=== PATIENT | female | born 1940 | race Hispanic/Latino ===

== ENCOUNTER 2016-09-28 10:40 | Outpatient (CLI) | payer MEDICARE ==
[2016-09-28] MEDS ORDERED: DEPO-MEDROL INTRA-ARTI ONE (11:30)
[2016-09-28] MEDS ORDERED: XYLOCAINE 1% 20 mL INFILTRATI NR (11:30)
[2016-09-28] MEDS ORDERED: XYLOCAINE 1% 20 mL ONE (12:55)
--- NOTE | 2016-09-28 15:39 | Fluoroscopy Report ---
THERAPEUTIC INJECTION OF THE LEFT HIP WITH FLUOROSCOPIC GUIDANCE: PROCEDURE: The patient's skin surface overlying the left hip was prepped and draped using sterile technique. Local anesthetic was injected into the skin. Using fluoroscopic guidance, a 22-gauge spinal needle was advanced into the capsule of the left hip joint. Injection of 1-2 cc of Omnipaque confirmed the intracapsular location of the needle tip. Subsequently, a mixture of 6 cc of 1% lidocaine and 40 mg of Depo-Medrol were injected successfully. The patient tolerated the procedure well clinically.
== END 2016-09-28 10:41 | disposition home or self-care (01) ==
LOC: FLUORO 10:40
PROVIDERS: ATTEND Orthopaedic Surgery
DX: M25.552 Pain in left hip (principal)
CPT/HCPCS: 27093; 73525; J1030; Q9965

== ENCOUNTER 2017-05-21 14:10 | Emergency (ER) | payer OTHER, MEDICARE ==
[2017-05-21 14:23] VITALS: BP 159/99
--- NOTE | 2017-05-21 16:32 | XRay Report ---
Right wrist: Trauma, pain. The bones are demineralized. There is no fracture and no displacement. The joint spaces are preserved. No significant swelling. Impression: Unremarkable for age.
[2017-05-21] MEDS ORDERED: MOTRIN PO ONE (17:40)
--- NOTE | 2017-05-21 17:43 | Cat Scan Report ---
FINAL REPORT PROCEDURE: CT head without contrast. TECHNIQUE: Computerized tomography of the head was performed without contrast material. HISTORY: Headache. COMPARISON: CT head 05/10/2015. FINDINGS: There is mild cerebral atrophy. There is diminished attenuation without mass effect involving the medial portions of both cerebellar hemispheres. This is more extensive on the left side. This is consistent with encephalomalacia and is probably secondary to a previous cerebellar stroke. There is mild evidence of chronic ischemic white matter disease. There are no mass lesions. There is no intracranial hemorrhage. The calvarium appears intact. The mastoid air cells and paranasal sinuses are clear as far as visualized. IMPRESSION: Previous cerebellar stroke. No evidence of acute disease.
--- NOTE | 2017-05-21 18:22 | XRay Report ---
FINAL REPORT PROCEDURE: Lumbar spine. TECHNIQUE: Three views. HISTORY: Patient fell, lower back pain. COMPARISON: No prior studies are available for comparison. FINDINGS: The lumbar vertebrae have normal height and alignment. There are no fractures. There is no spondylolisthesis. There is moderate disc space narrowing at L4-5 and L5-S1. The sacrum and sacroiliac joints appear normal. There is atherosclerotic calcification in the abdominal aorta and both common iliac arteries. IMPRESSION: Disc space narrowing at L4-5 and L5-S1.
--- NOTE | 2017-05-21 18:23 | XRay Report ---
FINAL REPORT PROCEDURE: Right forearm. TECHNIQUE: AP and lateral views. HISTORY: RIGHT ARM PAIN; fall COMPARISON: No prior studies are available for comparison. FINDINGS: The bones appear intact without fracture or dislocation. The joint spaces appear normal. The soft tissues are unremarkable. IMPRESSION: Normal study.
--- NOTE | 2017-05-21 18:25 | XRay Report ---
FINAL REPORT PROCEDURE: Right hand. TECHNIQUE: Three views. HISTORY: RIGHT HAND PAIN; fall COMPARISON: No prior studies are available for comparison. FINDINGS: The bones appear intact without fracture or dislocation. The joint spaces appear normal. The soft tissues are unremarkable. IMPRESSION: No significant abnormality.
--- NOTE | 2017-05-21 18:48 | Emergency Department Report ---
Entered by ARPIT MATOS, acting as scribe for MICHELLE ELLIS NP. ED Fall HPI - General Chief Complaint: Extremity Injury, Upper Stated Complaint: FELL/RT WRIST PAIN Time Seen by Provider: 05/21/17 14:38 Source: patient Mode of arrival: Ambulatory Limitations: No Limitations - History of Present Illness Initial Comments: This is a 76 y/o female, nontoxic, well nourished in appearance, no acute signs of distress with a PMHx of CVA and HTN presents with a fall injury that occurred this morning. Patient states she slipped, fell backwards landing on right hand, and subsequently hit her head at [place]. In the ED, patient c/o right wrist/hand pain, low back pain, and a mild achy back of head headache , but she denies LOC, syncope, blurry vision, dizziness, abdominal pain, nausea , vomiting, fever, chills, chest pain, SOB, [place] or dizziness, numbness, and tingling. Denies that this is the worst headache of her life. Rates right wrist/ forearm pain an 8/10 in severity, which she describes as aching in quality. Aggravated with movement and alleviated with immobilization. Notes she's been on blood thinners for 19 years. Allergic to codeine and sulfa. MD Complaint: fall -: This morning Fall From: standing When Fall Occurred: 1 hour [facility]AS Fall Witnessed: yes, by bystander Place Fall Occurred: other ([place]) Loss of Consciousness: none Prolonged Down Time?: no Symptoms Prior to Fall: none Location: head (back of head), back (low back) Location - Extremities: Right: Forearm (wrist) Severity: severe Severity scale (0 -10): 8 Quality: aching Context: tripped/slipped Associated Symptoms: headache, other (RT forearm and wrist pain). denies: neck pain, numbness, weakness, chest paint, shortness of breath, abdominal pain, hematuria, unable to walk, lightheaded, vertigo, confusion - Related Data Home Medications Medication Instructions Recorded Confirmed Last Taken ALPRAZolam [Xanax TAB] 0.5 mg PO DAILY 05/10/15 05/10/15 05/10/15 0.5 mg Clopidogrel [Plavix] 75 mg PO QDAY 05/10/15 05/10/15 05/10/15 75mg Lisinopril [Zestril TAB] 20 mg PO QDAY 05/10/15 05/10/15 04/30/15 20 mg Aspirin [Aspirin BABY CHEW TAB] 81 mg PO DAILY 05/11/15 05/11/15 1 Day Ago Previous Rx's Medication Instructions Recorded Last Taken Type Ibuprofen [Motrin 600 MG tab] 600 mg PO Q8H PRN #30 tablet 05/21/17 Unknown Rx Allergies Allergy/AdvReac Type Severity Reaction Status Date / Time codeine Allergy Unknown Verified 09/28/16 11:30 Sulfa (Sulfonamide Allergy Unknown Verified 05/21/17 14:18 Antibiotics) ED Review of Systems Comment: All other systems reviewed and negative Constitutional: denies: chills, fever Eyes: denies: eye pain, eye discharge, vision change ENT: denies: ear pain, throat pain Respiratory: denies: cough, orthopnea, shortness of breath, SOB with exertion, SOB at rest, stridor, wheezing Cardiovascular: denies: chest pain, palpitations, dyspnea on exertion, orthopnea , edema, syncope, paroxysmal nocturnal dyspnea Endocrine: no symptoms reported Gastrointestinal: denies: abdominal pain, nausea, vomiting, diarrhea Genitourinary: denies: urgency, dysuria, discharge Musculoskeletal: back pain (low back), arthralgia (RT wrist/forearm). denies: joint swelling, myalgia Skin: denies: rash, lesions Neurological: headache (back of head). denies: weakness, numbness, paresthesias , confusion, abnormal gait, vertigo Psychiatric: denies: anxiety, depression Hematological/Lymphatic: denies: easy bleeding, easy bruising ED Past Medical Hx - Past Medical History Previous Medical History?: Yes Hx Hypertension: Yes Hx CVA: Yes (CVA X 2-1998) - Surgical History Past Surgical History?: Yes Hx Cholecystectomy: Yes Hx Appendectomy: Yes Additional Surgical History: TONSILLECTOMY. HYSTERECTOMY - Family History Family history: no significant - Social History Smoking Status: Former Smoker Substance Use Type: None - Medications Home Medications: Home Medications Medication Instructions Recorded Confirmed Last Taken Type ALPRAZolam [Xanax TAB] 0.5 mg PO DAILY 05/10/15 05/10/15 05/10/15 History 0.5 mg Clopidogrel [Plavix] 75 mg PO QDAY 05/10/15 05/10/15 05/10/15 History 75mg Lisinopril [Zestril TAB] 20 mg PO QDAY 05/10/15 05/10/15 04/30/15 History 20 mg Aspirin [Aspirin BABY CHEW TAB] 81 mg PO DAILY 05/11/15 05/11/15 1 Day Ago History Ibuprofen [Motrin 600 MG tab] 600 mg PO Q8H PRN #30 tablet 05/21/17 Unknown Rx ED Physical Exam - General Limitations: No Limitations General appearance: alert, in no apparent distress - Head Head exam: Present: atraumatic, normocephalic - Eye Eye exam: Present: normal appearance, PERRL, EOMI. Absent: scleral icterus, conjunctival injection, nystagmus, periorbital swelling, periorbital tenderness Pupils: Present: normal accommodation - ENT ENT exam: Present: normal exam, normal orophraynx, mucous membranes moist, TM's normal bilaterally, normal external ear exam - Neck Neck exam: Present: normal inspection, full ROM. Absent: tenderness, meningismus, lymphadenopathy, thyromegaly - Respiratory Respiratory exam: Present: normal lung sounds bilaterally. Absent: respiratory distress, wheezes, rales, rhonchi, stridor, chest wall tenderness, accessory muscle use, decreased breath sounds, prolonged expiratory - Cardiovascular Cardiovascular Exam: Present: regular rate, normal rhythm, normal heart sounds. Absent: bradycardia, tachycardia, irregular rhythm, systolic murmur, diastolic murmur, rubs, gallop - GI/Abdominal GI/Abdominal exam: Present: soft, normal bowel sounds. Absent: distended, tenderness, guarding, rebound, rigid, diminished bowel sounds - Rectal Rectal exam: Present: deferred - Extremities Exam Extremities exam: Present: full ROM (limited extension secondary to RT wrist/ forearm pain), tenderness (RT forearm/wrist tenderness), normal capillary refill. Absent: normal inspection, pedal edema, joint swelling, calf tenderness - Expanded Upper Extremity Exam Right General: Present: normal inspection. Absent: laceration, abrasion, nail injury (#), foreign body, amputation, avulsion Shoulder Exam: Present: normal inspection, full ROM. Absent: tenderness, swelling, abrasion, laceration, ecchymosis, deformity, crepidus, dislocation, erythema, tenderness over AC joint Upper Arm exam: Present: normal inspection, full ROM. Absent: tenderness, swelling, abrasion, laceration, ecchymosis, deformity, crepidus, dislocation, erythema Elbow exam: Present: normal inspection, full ROM. Absent: tenderness, swelling , abrasion, laceration, ecchymosis, deformity, crepidus, dislocation, erythema, effusion, pain w/ pronation/supination, tenderness over radial head Forearm Wrist exam: Present: full ROM (limited extension secondary to RT wrist/ forearm pain), tenderness, ecchymosis. Absent: normal inspection, swelling, abrasion, laceration, deformity, crepidus, dislocation, erythema, tenderness over anatomical snuff box, pain with axial thumb loading Hand Wrist exam: Present: full ROM, tenderness, ecchymosis. Absent: normal inspection, swelling, abrasion, laceration, deformity, crepidus, dislocation, erythema, amputation, nail avulsion, subungual hematoma Neuro motor exam: Present: wrist extension intact, thumb opposition intact, thumb IP flexion intact, thumb adduction intact, fingers 2-5 abduction intact Neurosensory exam: Present: 2-point discrimination, radial nerve intact, ulnar nerve intact, median nerve intact Vascular: Present: normal capillary refill, radial pulse (2+), brachial pulse, ulnar pulse. Absent: vascular compromise, Pallo, pulse deficit radial art - Back Exam Back exam: Present: full ROM, tenderness (lumbar vertebral tenderness), vertebral tenderness (lumbar). Absent: normal inspection, CVA tenderness (R), CVA tenderness (L), muscle spasm, paraspinal tenderness, rash noted - Neurological Exam Neurological exam: Present: alert, oriented X3, CN II-XII intact, normal gait, reflexes normal. Absent: motor sensory deficit - Expanded Neurological Exam Expanded Patient oriented to: Present: person, place, time Speech: Present: fluid speech Cranial nerves: EOM's Intact: Normal, Gag Reflex: Normal, Tongue Deviation: Normal, Nystagmus: Normal, Facial Sensation: Normal, Facial Palsy with Forehead Movement: Normal, Facial Palsy without Forehead Movement: Normal Cerebellar function: Finger to Nose: Normal, Heel to Hebert: Normal, Romberg: Normal Upper motor neuron: Sj Neglect: Normal, Pronator Drift: Normal, Babinski Sign : Normal, Sensory Extinction: Normal Sensory exam: Upper Extremity Light Touch: Normal Motor strength exam: RUE: 5, LUE: 5, RLE: 5, LLE: 5 DTR: bicep (R): 2+, bicep (L): 2+, tricep (R): 2+, tricep (L): 2+, knee (R): 2+ , knee (L): 2+, ankle (R): 2+, ankle (L): 2+ Best Eye Response (Leigh): (4) open spontaneously Best Motor Response ([place]): (6) obeys commands Best Verbal Response ([place]): (5) oriented Leigh Total: 15 - Psychiatric Psychiatric exam: Present: normal affect, normal mood - Skin Skin exam: Present: warm, dry, intact. Absent: rash ED Course Vital Signs 05/21/17 14:18 Temperature 98.2 F Pulse Rate 83 Respiratory 16 Rate Blood Pressure 159/99 O2 Sat by Pulse 97 Oximetry - Reevaluation(s) Reevaluation #1: 05/21/17 17:48 Patient is speaking in full sentences with no signs of distress noted. Reevaluation #2: 05/21/17 18:32 The patient received a rekha wrap to the wrist/hand in a shoulder immobilizer to her right shoulder. ED Medical Decision Making - Radiology Data Radiology results: report reviewed interpreted by me: Dr. Laguerre and Dr. Govea CT head/brain without contrast and x-rays are all negative for findings and abnormalities. There is a disc space narrowing and L4 to L5 and L5 to S1. Patient was notified of all the CT scan and x-ray results with no further questions or by patient. ED Disposition Clinical Impression: Contusion Qualifiers: Encounter type: initial encounter Contusion area: forearm Laterality: right Qualified Code(s): S50.11XA - Contusion of right forearm, initial encounter Headache Qualifiers: Headache type: unspecified Headache chronicity pattern: unspecified pattern Intractability: not intractable Qualified Code(s): R51 - Headache Fall Qualifiers: Encounter type: initial encounter Qualified Code(s): W19.XXXA - Unspecified fall, initial encounter Disposition: DC- TO HOME OR SELFCARE Is pt being admited?: No Does the pt Need Aspirin: No Condition: Stable Instructions: Acute Headache (ED), Ibuprofen (By mouth), Contusion in Adults ( ED) Additional Instructions: Follow-up with the orthopedic doctor/primary care doctor 3-5 days or if symptoms worsen or continue to emergency room as soon as possible. Prescriptions: Ibuprofen [Motrin 600 MG tab] 600 mg PO Q8H PRN #30 tablet PRN Reason: Pain Referrals: PRIMARY CARE, [Primary Care Provider] - 3-5 Days JOSUE ALVAREZ MD [Staff Physician] - 3-5 Days YESENIA GUILLERMO MD [Staff Physician] - 3-5 Days [facility] [Outside] - 3-5 Days [facility] [Outside] - 3-5 Days Forms: Work/School Release Form(ED) This documentation as recorded by the SHAWNA cummins JASMINE,accurately reflects the service I personally performed and the decisions made by ,MICHELLE ELLIS, SERVICE PLUMBER.
== END 2017-05-21 18:52 | disposition home or self-care (01) ==
LOC: ED 14:10
DX: S50.11XA Contusion of right forearm, initial encounter (principal); R51 Headache; I10 Essential (primary) hypertension; Z86.73 Personal history of transient ischemic attack (TIA), and cerebral infarction without residual deficits; Z87.891 Personal history of nicotine dependence; Z79.82 Long term (current) use of aspirin; W19.XXXA Unspecified fall, initial encounter; Y93.89 Activity, other specified; Y99.9 Unspecified external cause status; Y92.89 Other specified places as the place of occurrence of the external cause
CPT/HCPCS: 70450; 72100

== ENCOUNTER 2017-11-20 02:53 | Inpatient (IN) | payer MEDICARE ==
--- NOTE | 2017-11-20 03:12 | Emergency Department Report ---
HPI - General Time Seen by Provider: 11/20/17 02:56 - HPI HPI: Charge nurse triage/room 2 The patient is a 77-year-old female presenting with a chief complaint of right- sided weakness. The patient states she was in her usual state of health and went to bed at 22:00. The patient states between 22:00-00:00 she fell asleep. The patient states when she awakened at 02:00 she had weakness in her right arm and right leg. EMS was called and transported the patient to the ED. The patient states her weakness is improving and is not as profound as it was when she first awakened Location: Right side Duration: [See above] Quality: Weakness Severity: Moderate Modifying factors: [see above] Context: [see above] Mode of transportation: [not driving] ED Past Medical Hx - Past Medical History Hx Hypertension: Yes Hx CVA: Yes (CVA X -1998) - Surgical History Hx Cholecystectomy: Yes Hx Appendectomy: Yes Additional Surgical History: TONSILLECTOMY. HYSTERECTOMY - Family History Family history: no significant - Social History Smoking Status: Former Smoker Substance Use Type: None - Medications Home Medications: Home Medications Medication Instructions Recorded Confirmed Last Taken Type ALPRAZolam [Xanax TAB] 0.5 mg PO DAILY 05/10/15 05/10/15 05/10/15 History 0.5 mg Clopidogrel [Plavix] 75 mg PO QDAY 05/10/15 05/10/15 05/10/15 History 75mg Lisinopril [Zestril TAB] 20 mg PO QDAY 05/10/15 05/10/15 04/30/15 History 20 mg Aspirin [Aspirin BABY CHEW TAB] 81 mg PO DAILY 05/11/15 05/11/15 1 Day Ago History ~05/10/15 Ibuprofen [Motrin 600 MG tab] 600 mg PO Q8H PRN #30 tablet 05/21/17 Unknown Rx ED Review of Systems ROS: Stated complaint: GENERAL WEAKNESS Other details as noted in HPI Neurological: weakness Physical Exam - Physical Exam Physical Exam: GENERAL: The patient is well-developed well-nourished female lying on stretcher not appearing to be in acute distress. [] HEENT: Normocephalic. Atraumatic. Extraocular motions are intact. Patient has moist mucous membranes. NECK: Supple. Trachea midline CHEST/LUNGS: Clear to auscultation. There is no respiratory distress noted. HEART/CARDIOVASCULAR: Regular. There is no tachycardia. There is no gallop rub or murmur. ABDOMEN: Abdomen is soft, nontender. Patient has normal bowel sounds. There is no abdominal distention. SKIN: There is no rash. There is no edema. There is no diaphoresis. NEURO: The patient is awake, alert, and oriented. The patient is cooperative. Cranial nerves II through XII grossly intact. There is right pronator drift. The patient's right leg falls to the bed before 5 seconds. The patient has normal speech MUSCULOSKELETAL: There is no evidence of acute injury. NIHSS= 5 LOC a. Alert= 0 Not alert but arousable to minor stimuli=1 Not alert requires repeated or strong stimuli to move= 2 Responds only reflex motor or unresponsive=3 b. asks month and age answers both correctly= 0 answers one correctly= 1 answers neither correctly= 2 Best Gaze normal= 0 abnormal in one or both but forced deviation or total paresis absent= 1 forced deviation or total gaze paresis= 2 Visual no visual loss= 0 partial hemianopia= 1 complete hemianopia= 2 bilateral hemianopia= 3 Facial Palsy normal= 0 minor paralysis= 1 partial paralysis= 2 complete paralysis= 3 Motor Arm no drift= 0 (+)drift before 10 secs but doesnt hit bed= 1 some effort against gravity= 2 no effort against gravity= 3 no movement= 4 Motor leg no drift= 0 (+)drift before 5 secs but doesnt hit bed= 1 drifts to bed before 5 secs= 2 no effort against gravity= 3 no movement= 4 Limb ataxia absent=0 present in one limb= 1 (+)present in two limbs= 2 Sensory normal= 0 (+)mild sensory loss= 1 severe (unaware of being touched)= 2 Best language mild/some loss of fluency= 1 severe= 2 mute= 3 Dysarthria normal= 0 slurs some words= 1 severe/unintelligible= 2 Extinction and Inattention no abnormality= 0 visual, tactile, auditory or personal inattention= 1 profound (doesnt recognize own hand or orients to only one side= 2 ED Course - Consultations Consultation #1: 11/20/17 03:19 Tele-neurology paged 11/20/17 03:[address] Shafer- states outside window for TPA. Recommends obtaining a CTA brain and neck to evaluate for large vessel occlusions ED Medical Decision Making - Lab Data Result diagrams: 11/20/17 02:55 11/20/17 02:55 Laboratory Tests 11/20/17 11/20/17 11/20/17 02:55 02:55 02:55 WBC 7.1 RBC 4.75 Hgb 14.3 Hct 42.1 MCV 89 MCH 30 MCHC 34 RDW 15.1 Plt Count 233 Lymph % (Auto) 31.6 Benson % (Auto) 8.3 H Eos % (Auto) 1.3 Baso % (Auto) 1.0 Lymph # 2.2 Benson # 0.6 Eos # 0.1 Baso # 0.1 Seg Neutrophils % 57.8 Seg Neutrophils # 4.1 PT 12.5 INR 0.89 APTT 28.7 Sodium 139 Potassium 4.2 Chloride 102.2 Carbon Dioxide 23 Anion Gap 18 BUN 15 Creatinine 0.9 Estimated GFR > 60 BUN/Creatinine Ratio 17 Glucose 106 H Calcium 9.0 - EKG Data -: EKG Interpreted by Sd EKG shows normal: sinus rhythm Rate: normal - EKG Data When compared to previous EKG there are: no significant change Interpretation: unchanged when compared t (03/11/2013) - Radiology Data Radiology results: report reviewed (CT head, CTA brain, CTA neck), image reviewed (CT head, CTA brain, CTA neck) CT head (read by radiologist) -no evidence of acute stroke or hemorrhage FINAL REPORT EXAM: CT ANGIO HEAD HISTORY: right-sided weakness TECHNIQUE: A CT angiogram was performed following the intravenous injection of 100 cc of Omnipaque 350. Rotational, sagittal and coronal MIP reconstructions were obtained. FINDINGS: In the posterior fossa the right vertebral artery is widely patent. The left vertebral artery is not seen. The basilar artery is normal in caliber and course with normal bifurcation into both posterior cerebral arteries. In the anterior circulation both internal carotid arteries are widely patent with normal bifurcation into the anterior and middle cerebral arteries bilaterally. There is no evidence of aneurysm or vascular malformation. There is no evidence of arterial stenosis or thrombosis. The dural venous sinuses opacify normally. IMPRESSION: No evidence of intracranial aneurysm, arterial thrombosis, or arterial stenosis. The dural venous sinuses opacify normally. Transcribed By: RB Dictated By: JOSUE REZA MD Electronically Authenticated By: JOSUE REZA MD Signed Date/Time: 11/20/17432 DD/ 2 TD/TT: 11/20/17432 FINAL REPORT EXAM: CT ANGIO NECK HISTORY: right-sided weakness TECHNIQUE: A CT angiogram was obtained of the neck following the intravenous injection of 100 cc of Omnipaque 350. Rotational, sagittal and coronal MIP reconstructions were obtained. FINDINGS: Both vertebral arteries are patent with the right being dominant. The left vertebral artery ends blindly into PICA. In the anterior circulation both common carotid arteries are widely patent with normal bifurcation into the internal and external carotid arteries. There is no evidence of arterial stenosis or dissection. The soft tissues of the neck show no evidence of adenopathy or masses. The airway appears normal. The thyroid gland appears normal. The lung apices are clear. The retropharyngeal space appears normal. The skeletal structures reveal disc degeneration in the lower cervical spine. IMPRESSION: No evidence of arterial stenosis, thrombosis or dissection involving the carotid or vertebral arteries. No acute process in the neck. Transcribed By: RB Dictated By: JOSUE REZA MD Electronically Authenticated By: JOSUE REZA MD Signed Date/Time: 11/20/17442 DD/ 2 TD/TT: 11/20/17442 - Differential Diagnosis CVA, ICH Critical care attestation.: If time is entered above; I have spent that time in minutes in the direct care of this critically ill patient, excluding procedure time. ED Disposition Clinical Impression: CVA (cerebral vascular accident) Disposition: OP ADMIT IP TO THIS HOSP Is pt being admited?: Yes Does the pt Need Aspirin: Yes Condition: Fair Referrals: YAEL CLAY MD [Primary Care Provider] - 3-5 Days Time of Disposition: 05:18 (hospitalist paged (Dr. Yahaira Abel))
[2017-11-20 03:18] LABS: Basophils # (Auto) 0.1 K/mm3 (0.0-0.1); Eosinophils # (Auto) 0.1 K/mm3 (0.0-0.4); Eosinophils % (Auto) 1.3 % (0.0-4.3); Hematocrit 42.1 % (30.3-42.9); Hemoglobin 14.3 gm/dl (10.1-14.3); Lymphocytes # (Auto) 2.2 K/mm3 (1.2-5.4); Lymphocytes % (Auto) 31.6 % (13.4-35.0); Mean Corpuscular HGB Conc 34 % (30-34); Mean Corpuscular Hemoglobin 30 pg (28-32); Mean Corpuscular Volume 89 fl (79-97); Monocytes # (Auto) 0.6 K/mm3 (0.0-0.8); Monocytes % (Auto) 8.3 % (0.0-7.3); Platelet Count 233 K/mm3 (140-440); Red Blood Count 4.75 M/mm3 (3.65-5.03); Red Cell Distribution Width 15.1 % (13.2-15.2)
--- NOTE | 2017-11-20 03:20 | Cat Scan Report ---
FINAL REPORT EXAM: CT HEAD/BRAIN WO CON HISTORY: right-sided weakness TECHNIQUE: Routine axial imaging was obtained of the brain without IV contrast. Comparison is made to the study of 05/21/2017. FINDINGS: There is age related atrophy. There is no evidence of acute stroke or hemorrhage. There is a remote infarct in the left cerebellar hemisphere. The basal cisterns appear normal. The ventricular system is appropriate in size and is symmetric. The visualized sinuses are clear. The mastoid air cells are well pneumatized. The calvarium appears intact. IMPRESSION: Age related atrophy. No evidence of acute stroke or hemorrhage. Remote stroke in the left cerebellar hemisphere.
[2017-11-20 03:24] LABS: BUN/Creatinine Ratio 17; Blood Urea Nitrogen 15 mg/dL (7-17); Hemolysis Index 8
[2017-11-20 03:28] LABS: INR 0.89 (0.87-1.13)
[2017-11-20 03:29] LABS: Partial Thromboplastin Time 28.7 Sec. (24.2-36.6)
[2017-11-20] MEDS ORDERED: ASPIRIN PO ONE (03:34)
[2017-11-20] MEDS ORDERED: ZOFRAN ONE (03:57)
[2017-11-20] MEDS ORDERED: ZOFRAN IV ONE (04:01)
--- NOTE | 2017-11-20 04:37 | Cat Scan Report ---
FINAL REPORT EXAM: CT ANGIO HEAD HISTORY: right-sided weakness TECHNIQUE: A CT angiogram was performed following the intravenous injection of 100 cc of Omnipaque 350. Rotational, sagittal and coronal MIP reconstructions were obtained. FINDINGS: In the posterior fossa the right vertebral artery is widely patent. The left vertebral artery is not seen. The basilar artery is normal in caliber and course with normal bifurcation into both posterior cerebral arteries. In the anterior circulation both internal carotid arteries are widely patent with normal bifurcation into the anterior and middle cerebral arteries bilaterally. There is no evidence of aneurysm or vascular malformation. There is no evidence of arterial stenosis or thrombosis. The dural venous sinuses opacify normally. IMPRESSION: No evidence of intracranial aneurysm, arterial thrombosis, or arterial stenosis. The dural venous sinuses opacify normally.
--- NOTE | 2017-11-20 04:48 | Cat Scan Report ---
FINAL REPORT EXAM: CT ANGIO NECK HISTORY: right-sided weakness TECHNIQUE: A CT angiogram was obtained of the neck following the intravenous injection of 100 cc of Omnipaque 350. Rotational, sagittal and coronal MIP reconstructions were obtained. FINDINGS: Both vertebral arteries are patent with the right being dominant. The left vertebral artery ends blindly into PICA. In the anterior circulation both common carotid arteries are widely patent with normal bifurcation into the internal and external carotid arteries. There is no evidence of arterial stenosis or dissection. The soft tissues of the neck show no evidence of adenopathy or masses. The airway appears normal. The thyroid gland appears normal. The lung apices are clear. The retropharyngeal space appears normal. The skeletal structures reveal disc degeneration in the lower cervical spine. IMPRESSION: No evidence of arterial stenosis, thrombosis or dissection involving the carotid or vertebral arteries. No acute process in the neck.
[2017-11-20] MEDS ORDERED: MILK OF MAGNESIA PO PRN (06:14)
[2017-11-20] MEDS ORDERED: SODIUM CHLORIDE FLUSH SYRINGE 10 ML IV PRN (06:14)
[2017-11-20] MEDS ORDERED: DULCOLAX PR PRN (06:14)
[2017-11-20] MEDS ORDERED: ZOFRAN IV PRN (06:14)
--- NOTE | 2017-11-20 06:14 | History and Physical Report ---
History of Present Illness Date of examination: 11/20/17 History of present illness: 77 year old woman with history of hypertension, CVA comes tot emergency room with right side weakness and numbness of the face. She states that she went to bed at mid-night and woke up at 2am with the above symptoms. Review Of Systems: Constitutional: no weight loss Ears, eyes, nose, mouth and throat: no nasal congestion, no nasal discharge, no sinus pressure, blurry vision, diplopia Neck: No neck pain or rigidity. Cardiovascular: no shortness of breath, orthopnea Respiratory: No cough, shortness of breath Gastrointestinal: no abdominal pain, hematochezia Genitourinary : no dysuria, frequency , hematuria Musculoskeletal: no muscle ache Integumentary: no rash, no pruritis Neurological: no parathesias, focal weakness Endocrine: no cold or heat intolerance, no polyuria or polydipsia Hematologic/Lymphatic: no easy bruising, no easy bruising PAST MEDICAL HISTORY:hypertension, CVA PAST SURGICAL HISTORY:appendectomy, cholecystectomy, hysterectomy, tonsillectomy FAMILY HISTORY: Hypertension SOCIAL HISTORY: Denies alcohol, tobacco, drugs Medications and Allergies Allergies Allergy/AdvReac Type Severity Reaction Status Date / Time codeine Allergy Unknown Verified 09/28/16 11:30 Sulfa (Sulfonamide Allergy Unknown Verified 05/21/17 14:18 Antibiotics) Home Medications Medication Instructions Recorded Confirmed Last Taken Type ALPRAZolam [Xanax TAB] 0.5 mg PO DAILY 05/10/15 05/10/15 05/10/15 History 0.5 mg Clopidogrel [Plavix] 75 mg PO QDAY 05/10/15 05/10/15 05/10/15 History 75mg Lisinopril [Zestril TAB] 20 mg PO QDAY 05/10/15 05/10/15 04/30/15 History 20 mg Aspirin [Aspirin BABY CHEW TAB] 81 mg PO DAILY 05/11/15 05/11/15 1 Day Ago History ~05/10/15 Ibuprofen [Motrin 600 MG tab] 600 mg PO Q8H PRN #30 tablet 05/21/17 Unknown Rx Exam - Physical Exam Narrative exam: Gen. appearance: Patient lying in bed in no acute distress HEENT: Normocephalic/atraumatic, pupils equal round reactive to light, extra alkaline movement intact, no scleral icterus, no JVD or thyromegaly or nodule, neck is supple, mucous membrane moist, no erythema or exudate Heart: S1-S2, irregular rate and rhythm Lungs: Clear to auscultation bilateral breathing comfortable Abdomen: Positive bowel sounds, nontender, nondistended, no organomegaly Extremities: No edema, cyanosis, clubbing Neuro:: Oriented 3 , cranial nerves II-12 intact, speech, motor intact, right side of face paresthesia Skin: No rash, nodules, warm dry - Constitutional Vitals: Temp Pulse Resp BP Pulse Ox 97.4 F L 89 11 L 170/84 97 11/20/17 03:33 11/20/17 06:00 11/20/17 06:00 11/20/17 06:00 11/20/17 06:00 Results - Labs CBC & Chem 7: 11/20/17 02:55 11/20/17 02:55 Labs: Abnormal lab results 11/20/17 11/20/17 Range/Units 02:55 02:55 [place] % (Auto) 8.3 H (0.0-7.3) % Glucose 106 H (65-100) mg/dL - Imaging and Cardiology EKG: image reviewed CT Scan - head: report reviewed Assessment and Plan CtA head and neck reviewed Assessment CVA Hypertension Plan Admit to medicine Obatain MR head, Do neuro check, swallow screen Continue Aspirin, plavix,statin Consult neurology, PT/OT DVT prophalaxis
[2017-11-20] MEDS ORDERED: LOVENOX SUB-Q SCH (10:00)
[2017-11-20] MEDS ORDERED: COREG PO SCH (10:00)
[2017-11-20] MEDS: BABY ASPIRIN PO SCH (10:05)
[2017-11-20] MEDS: PLAVIX PO SCH (10:05)
[2017-11-20] MEDS: XANAX PO SCH (10:05)
[2017-11-20] MEDS: LOVENOX SUB-Q SCH (10:06)
--- NOTE | 2017-11-20 14:54 | Magnetic Resonance Report ---
MRI OF THE BRAIN WITHOUT CONTRAST: HISTORY: CVA PROCEDURE: Multiplanar, multisequence MR imaging of the brain without IV contrast was performed. FINDINGS: Compared to the CT head dated 11/20/17. MRI demonstrates a linear area of diffusion restriction measuring 1.4 x 0.6 cm in the posterior left basal ganglia. This probably involves the posterior limb of the left internal capsule. No additional areas of diffusion restriction are identified. Chronic lacunar infarct in the right dhillon radiata as noted on flair image 16. There appear to be a moderate to large areas of chronic encephalomalacia in the medial, inferior cerebellar hemispheres bilaterally. These presumably represent chronic infarcts, correlate with the patient's history. These have not significantly changed since a CT head dated 05/21/17. No evidence for hemorrhage, mass or extra-axial fluid collection. There is mild diffuse volume loss and mild chronic ischemic changes in the periventricular white matter. The midline structures are central. The basal cisterns are patent. Normal ventricular size. The orbital cavities and sella turcica demonstrate no abnormality. The visualized paranasal sinuses and mastoid air cells are well aerated. IMPRESSION: 1.4 x 0.6 cm area of subacute ischemia in the left posterior basal ganglia as described. Other chronic findings as noted above.
--- NOTE | 2017-11-20 16:02 | Progress Note ---
<PIOTR SALINAS - Last Filed: 11/20/17 15:53> Assessment and Plan Assessment and plan: 77 year old woman with history of hypertension, CVA comes to the emergency room with right side weakness and numbness of the face. She states that she went to bed at mid-night and woke up at 2am with the above symptoms CVA MRI head revealed 1.4 x 0.6 cm area of subacute ischemia in the left posterior basal ganglia as described. CT head revealed Age related atrophy. No evidence of acute stroke or hemorrhage. Remote stroke in the left cerebellar hemisphere. CTA head revealed No evidence of intracranial aneurysm, arterial thrombosis, or arterial stenosis. The dural venous sinuses opacify normally. CTA neck showed No acute process in the neck. Neurology consulted, continue Aspirin, plavix,statin PT, OT, Speech ordered Hypertension Patient initiated on Lisinopril DVT prophalaxis Lovenox History Interval history: Patient seen and examined. No new events overnight. Labs and nursing notes reviewed Hospitalist Physical - Constitutional Vitals: Temp Pulse Resp BP Pulse Ox 97.5 F L 75 20 157/84 97 11/20/17 12:26 11/20/17 14:08 11/20/17 12:26 11/20/17 12:26 11/20/17 12:26 General appearance: Present: no acute distress, well-nourished - EENT Eyes: Present: PERRL, EOM intact ENT: hearing intact, clear oral mucosa - Neck Neck: Present: supple, normal ROM - Respiratory Respiratory effort: normal Respiratory: bilateral: CTA - Cardiovascular Rhythm: regular Heart Sounds: Present: S1 & S2 - Extremities Extremities: no ischemia, No edema - Abdominal General gastrointestinal: soft, non-tender, non-distended - Integumentary Integumentary: Present: clear, warm, dry - Psychiatric Psychiatric: appropriate mood/affect, cooperative - Neurologic Neurologic: CNII-XII intact, moves all extremities - Allied Health Allied health notes reviewed: nursing Results - Labs CBC & Chem 7: 11/20/17 02:55 11/20/17 02:55 Labs: Laboratory Last Values WBC 7.1 K/mm3 (4.5-11.0) 11/20/17 02:55 RBC 4.75 M/mm3 (3.65-5.03) 11/20/17 02:55 Hgb 14.3 gm/dl (10.1-14.3) 11/20/17 02:55 Hct 42.1 % (30.3-42.9) 11/20/17 02:55 MCV 89 fl (79-97) 11/20/17 02:55 MCH 30 pg (28-32) 11/20/17 02:55 MCHC 34 % (30-34) 11/20/17 02:55 RDW 15.1 % (13.2-15.2) 11/20/17 02:55 Plt Count 233 K/mm3 (140-440) 11/20/17 02:55 Lymph % (Auto) 31.6 % (13.4-35.0) 11/20/17 02:55 [place] % (Auto) 8.3 % (0.0-7.3) H 11/20/17 02:55 Eos % (Auto) 1.3 % (0.0-4.3) 11/20/17 02:55 Baso % (Auto) 1.0 % (0.0-1.8) 11/20/17 02:55 Lymph # 2.2 K/mm3 (1.2-5.4) 11/20/17 02:55 [place] # 0.6 K/mm3 (0.0-0.8) 11/20/17 02:55 Eos # 0.1 K/mm3 (0.0-0.4) 11/20/17 02:55 Baso # 0.1 K/mm3 (0.0-0.1) 11/20/17 02:55 Seg Neutrophils % 57.8 % (40.0-70.0) 11/20/17 02:55 Seg Neutrophils # 4.1 K/mm3 (1.8-7.7) 11/20/17 02:55 PT 12.5 Sec. (12.2-14.9) 11/20/17 02:55 INR 0.89 (0.87-1.13) 11/20/17 02:55 APTT 28.7 Sec. (24.2-36.6) 11/20/17 02:55 Sodium 139 mmol/L (137-145) 11/20/17 02:55 Potassium 4.2 mmol/L (3.6-5.0) 11/20/17 02:55 Chloride 102.2 mmol/L (98-107) 11/20/17 02:55 Carbon Dioxide 23 mmol/L (22-30) 11/20/17 02:55 Anion Gap 18 mmol/L 11/20/17 02:55 BUN 15 mg/dL (7-17) 11/20/17 02:55 Creatinine 0.9 mg/dL (0.7-1.2) 11/20/17 02:55 Estimated GFR > 60 ml/min 11/20/17 02:55 BUN/Creatinine Ratio 17 % 11/20/17 02:55 Glucose 106 mg/dL (65-100) H 11/20/17 02:55 Calcium 9.0 mg/dL (8.4-10.2) 11/20/17 02:55 <JEFE TRAN R - Last Filed: 11/20/17 23:01> Assessment and Plan Assessment and plan: I saw and evaluated the patient. I agree with the findings and the plan of care as documented in the Nurse Practitioner's~note, with the following corrections and additions. RN called and informed patient had episode of NSVT on tele, pt asymptomatic and denies any chest pain. will cont on coreg and lisinopril for uncontrolled HTN, obtain 2d echo, EKG, troponin. Will consult cardiology Hospitalist Physical - Constitutional Vitals: Temp Pulse Resp BP Pulse Ox 98.2 F 81 20 168/78 97 11/20/17 20:34 11/20/17 20:34 11/20/17 20:34 11/20/17 20:34 11/20/17 20:34 Results - Labs CBC & Chem 7: 11/20/17 02:55 11/20/17 02:55 Labs: Laboratory Last Values WBC 7.1 K/mm3 (4.5-11.0) 11/20/17 02:55 RBC 4.75 M/mm3 (3.65-5.03) 11/20/17 02:55 Hgb 14.3 gm/dl (10.1-14.3) 11/20/17 02:55 Hct 42.1 % (30.3-42.9) 11/20/17 02:55 MCV 89 fl (79-97) 11/20/17 02:55 MCH 30 pg (28-32) 11/20/17 02:55 MCHC 34 % (30-34) 11/20/17 02:55 RDW 15.1 % (13.2-15.2) 11/20/17 02:55 Plt Count 233 K/mm3 (140-440) 11/20/17 02:55 Lymph % (Auto) 31.6 % (13.4-35.0) 11/20/17 02:55 [place] % (Auto) 8.3 % (0.0-7.3) H 11/20/17 02:55 Eos % (Auto) 1.3 % (0.0-4.3) 11/20/17 02:55 Baso % (Auto) 1.0 % (0.0-1.8) 11/20/17 02:55 Lymph # 2.2 K/mm3 (1.2-5.4) 11/20/17 02:55 [place] # 0.6 K/mm3 (0.0-0.8) 11/20/17 02:55 Eos # 0.1 K/mm3 (0.0-0.4) 11/20/17 02:55 Baso # 0.1 K/mm3 (0.0-0.1) 11/20/17 02:55 Seg Neutrophils % 57.8 % (40.0-70.0) 11/20/17 02:55 Seg Neutrophils # 4.1 K/mm3 (1.8-7.7) 11/20/17 02:55 PT 12.5 Sec. (12.2-14.9) 11/20/17 02:55 INR 0.89 (0.87-1.13) 11/20/17 02:55 APTT 28.7 Sec. (24.2-36.6) 11/20/17 02:55 Sodium 139 mmol/L (137-145) 11/20/17 02:55 Potassium 4.2 mmol/L (3.6-5.0) 11/20/17 02:55 Chloride 102.2 mmol/L (98-107) 11/20/17 02:55 Carbon Dioxide 23 mmol/L (22-30) 11/20/17 02:55 Anion Gap 18 mmol/L 11/20/17 02:55 BUN 15 mg/dL (7-17) 11/20/17 02:55 Creatinine 0.9 mg/dL (0.7-1.2) 11/20/17 02:55 Estimated GFR > 60 ml/min 11/20/17 02:55 BUN/Creatinine Ratio 17 % 11/20/17 02:55 Glucose 106 mg/dL (65-100) H 11/20/17 02:55 Calcium 9.0 mg/dL (8.4-10.2) 11/20/17 02:55 Troponin T < 0.010 ng/mL (0.00-0.029) 11/20/17 17:51 TSH 2.360 mlU/mL (0.270-4.200) 11/20/17 20:58 Free T4 0.97 ng/dL (0.76-1.46) 11/20/17 20:56
[2017-11-20] MEDS: TYLENOL PO PRN (16:40)
--- NOTE | 2017-11-20 19:51 | Consultation ---
History of Present Illness Consult date: 11/20/17 Requesting physician: LAURE GRANGER Reason for Consult: right side weakness Chief complaint: right side weakness and numbness History of present illness: This 77-year-old right-handed white female who awoke around 1:45 AM today having gone to bed around midnight, with numbness of right side of face and brief slurring of speech and right occipital headache. Blood pressure was 140/ 69 usually is 123/74. 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 She had some nausea this morning and a feeling of being off balance according to her such that she could not sit up straight. MRI shows subacute left internal capsule stroke extending to the left lateral ventricle though no ADC dropout. There is also an old large left larger than right cerebellar white matter and cortical infarct. She has been on Plavix for 19 years since a stroke in January 1999 which primarily gave her headache. She states she had a stroke in January and in February of that year. She's been on aspirin 81 mg for 7 years. She was started on Lipitor 20 mg 2 weeks ago as her LDL proved to be a bit high. CT angiogram of head and neck here are normal. 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 denies: smoking (quit in 1998), alcohol abuse (no alcohol and no illicit drugs.) Family history: hypertension (mother), stroke (mother), other (I gave for epilepsy) Medications and Allergies Allergies Allergy/AdvReac Type Severity Reaction Status Date / Time codeine Allergy Unknown Verified 09/28/16 11:30 Sulfa (Sulfonamide Allergy Unknown Verified 05/21/17 14:18 Antibiotics) Home Medications Medication Instructions Recorded Confirmed Last Taken Type ALPRAZolam [Xanax TAB] 0.5 mg PO DAILY 05/10/15 11/20/17 1 Day Ago History ~11/19/17 Clopidogrel [Plavix] 75 mg PO QDAY 05/10/15 11/20/17 1 Day Ago History ~03/05/18 Active Meds: Active Medications Acetaminophen (Tylenol) 650 mg PO Q4H PRN PRN Reason: Pain, Mild (1-3) Last Admin: 11/20/17 16:40 Dose: 650 mg Alprazolam (Xanax) 0.[address] [facility] Last Admin: 11/20/17 10:05 Dose: 0.5 mg Aspirin (Baby Aspirin) [address] [facility] Last Admin: 11/20/17 10:05 Dose: 81 mg Atorvastatin Calcium (Lipitor) [address] [facility] Bisacodyl (Dulcolax) 10 mg SD QDAY PRN PRN Reason: Constipation Carvedilol (Coreg) 3.[address] [facility] Clopidogrel Bisulfate (Plavix) [address] [facility] Last Admin: 11/20/17 10:05 Dose: 75 mg Enoxaparin Sodium (Lovenox) 40 mg SUB-Q QDAY@1000 [facility] Last Admin: 11/20/17 10:06 Dose: 40 mg Lisinopril (Zestril) [address] [facility] Magnesium Hydroxide (Milk Of Magnesia) 30 ml PO Q4H PRN PRN Reason: Constipation Ondansetron HCl (Zofran) 4 mg IV Q8H PRN PRN Reason: N/V unrelieved by Reglan Sodium Chloride (Sodium Chloride Flush Syringe 10 Ml) 10 ml IV PRN PRN PRN Reason: LINE FLUSH Review of Systems All systems: negative (no headache now and none usually sometimes lightheaded, dozing off a lot the past week. Some short-term memory deficits for the past year but no remote memory problems.) Physical Examination - Vital Signs Vital Signs: Vital Signs Pulse Ox 98 11/20/17 03:12 - Physical Exam Narrative exam: General Appearance: well developed well nourished (per BMI) mid 70s white female in [facility], with family at bedside. HEENT: atraumatic, normocephalic; no bruits, 2+ Genove[place] without soreness or induration or enlargement, sclerae nonicteric. Oropharynx pink and moist. Neck: supple, no bruits. Heart: no murmur or extra sounds. Extremities: no clubbing, cyanosis or edema. 2+ posterior tibial pulses bilaterally. Neurologic Exam: Mental Status: Awake, alert, oriented X 3, speech is clear, names pen and tip of pen, and abstracts well. Names President and On Car Supervisor, serial 7's intact, no right-left confusion, gets 3 of 3 objects at 3 minutes, spells WORLD backwards correctly. Cranial Nerves: ballard full, no papilledema, SVPs present, PERRLA but appears to have cataracts bilaterally, EOMs full without nystagmus or diplopia, facial sensation intact to pinprick and light touch, no facial weakness, Carranza is midline, gags are slightly positive especially on the right, shoulder shrug is 5 X 2, tongue protrudes midline. Cerebellar: finger to nose intact, heel to maciel slightly dysmetric on the left. Sensory: intact to light touch and vibrations, pinprick decreased in the feet. Double simultaneous stimulation is intact. Motor Exam Upper Extremities: no drift or pronation, Zee intact. Clockmaker Apprentice are 5- right and 5 left, tone is normal. No atrophy or fasciculations are noted visually. Motor Exam Lower Extremities: Mild right leg leg which is ataxic, quadriceps 4+ on the right and 5 on the left, anterior tibials and gastrocnemius are 5 bilaterally. Zee intact. Tone is normal. No atrophy or fasciculations are noted visually. Reflexes: Palmomental, snout and jaw jerk are negative. Triceps are 1+, biceps are 1+ right and trace left and brachioradialis are trace bilaterally. Zachary 's is negative bilaterally. Knee jerks are 1+ and ankle jerks are 1+ right and 1 left bilaterally without clonus. Toes are mute right and slightly upgoing left to Babinski testing. Results - Laboratory Findings CBC and BMP: 11/20/17 02:55 11/20/17 02:55 Abnormal Lab Findings: Abnormal Labs 11/20/17 11/20/17 02:55 02:55 [place] % (Auto) 8.3 H Glucose 106 H Assessment and Plan Impression: 1. Right MCA embolic stroke 2. Hypertension 3. Hyperlipidemia 4. Mild memory loss Plan: 1. Check fasting lipids. 2. Echo with bubbles. 3. May need 30 day event monitoring as outpatient to rule out paroxysmal atrial fibrillation. 4. Memory labs ordered. 45 minutes spent including review of 100s of MRI images, some of which I showed her. Thank you for an interesting consultation on this pleasant mid 70s lady.
[2017-11-20] MEDS ORDERED: BENADRYL IV ONE (21:47)
[2017-11-20] MEDS: COREG PO SCH (22:28)
[2017-11-21] MEDS: TYLENOL PO PRN (05:46)
[2017-11-21 06:44] LABS: Chol/HDL Ratio 2.74 %
[2017-11-21] MEDS: PLAVIX PO SCH (14:58)
[2017-11-21] MEDS: COREG PO SCH ×2 (14:58→21:44)
[2017-11-21] MEDS: ZESTRIL PO SCH (14:58)
[2017-11-21] MEDS: XANAX PO SCH (14:59)
[2017-11-21] MEDS: BABY ASPIRIN PO SCH (14:59)
[2017-11-21] MEDS: LOVENOX SUB-Q SCH (14:59)
--- NOTE | 2017-11-21 15:51 | Progress Note ---
<PIOTR SALINAS - Last Filed: 11/21/17 15:52> Assessment and Plan Assessment and plan: 77 year old woman with history of hypertension, CVA comes to the emergency room with right side weakness and numbness of the face. She states that she went to bed at mid-night and woke up at 2am with the above symptoms CVA MRI head revealed 1.4 x 0.6 cm area of subacute ischemia in the left posterior basal ganglia as described. CT head revealed Age related atrophy. No evidence of acute stroke or hemorrhage. Remote stroke in the left cerebellar hemisphere. CTA head revealed No evidence of intracranial aneurysm, arterial thrombosis, or arterial stenosis. The dural venous sinuses opacify normally. CTA neck showed No acute process in the neck. Neurology consulted, continue Aspirin, plavix,s tatin PT, OT, Speech ordered Hypertension Controlled on current regimen, Continue Lisinopril and Coreg, NSVT Cardiology consulted, echo results are pending, cardiac enzymes were negative DVT prophalaxis Lovenox History Interval history: Patient seen and examined. She stated she had some dizziness earlier but while walking with physical therapy the dizziness subsided.. Labs and nursing notes reviewed Hospitalist Physical - Constitutional Vitals: Temp Pulse Resp BP Pulse Ox 98.3 F 70 18 110/61 96 11/21/17 07:28 11/21/17 15:00 11/21/17 07:28 11/21/17 07:28 11/21/17 07:28 General appearance: Present: no acute distress, well-nourished - EENT Eyes: Present: PERRL, EOM intact ENT: hearing intact, clear oral mucosa - Neck Neck: Present: supple, normal ROM - Respiratory Respiratory effort: normal Respiratory: bilateral: CTA - Cardiovascular Rhythm: regular Heart Sounds: Present: S1 & S2 - Extremities Extremities: no ischemia, No edema - Abdominal General gastrointestinal: soft, non-tender, non-distended - Integumentary Integumentary: Present: clear, warm, dry - Psychiatric Psychiatric: appropriate mood/affect, intact judgment & insight, cooperative - Neurologic Neurologic: CNII-XII intact, moves all extremities - Allied Health Allied health notes reviewed: nursing Results - Labs CBC & Chem 7: 11/20/17 02:55 11/20/17 02:55 Labs: Laboratory Last Values WBC 7.1 K/mm3 (4.5-11.0) 11/20/17 02:55 RBC 4.75 M/mm3 (3.65-5.03) 11/20/17 02:55 Hgb 14.3 gm/dl (10.1-14.3) 11/20/17 02:55 Hct 42.1 % (30.3-42.9) 11/20/17 02:55 MCV 89 fl (79-97) 11/20/17 02:55 MCH 30 pg (28-32) 11/20/17 02:55 MCHC 34 % (30-34) 11/20/17 02:55 RDW 15.1 % (13.2-15.2) 11/20/17 02:55 Plt Count 233 K/mm3 (140-440) 11/20/17 02:55 Lymph % (Auto) 31.6 % (13.4-35.0) 11/20/17 02:55 [place] % (Auto) 8.3 % (0.0-7.3) H 11/20/17 02:55 Eos % (Auto) 1.3 % (0.0-4.3) 11/20/17 02:55 Baso % (Auto) 1.0 % (0.0-1.8) 11/20/17 02:55 Lymph # 2.2 K/mm3 (1.2-5.4) 11/20/17 02:55 [place] # 0.6 K/mm3 (0.0-0.8) 11/20/17 02:55 Eos # 0.1 K/mm3 (0.0-0.4) 11/20/17 02:55 Baso # 0.1 K/mm3 (0.0-0.1) 11/20/17 02:55 Seg Neutrophils % 57.8 % (40.0-70.0) 11/20/17 02:55 Seg Neutrophils # 4.1 K/mm3 (1.8-7.7) 11/20/17 02:55 PT 12.5 Sec. (12.2-14.9) 11/20/17 02:55 INR 0.89 (0.87-1.13) 11/20/17 02:55 APTT 28.7 Sec. (24.2-36.6) 11/20/17 02:55 Sodium 139 mmol/L (137-145) 11/20/17 02:55 Potassium 4.2 mmol/L (3.6-5.0) 11/20/17 02:55 Chloride 102.2 mmol/L (98-107) 11/20/17 02:55 Carbon Dioxide 23 mmol/L (22-30) 11/20/17 02:55 Anion Gap 18 mmol/L 11/20/17 02:55 BUN 15 mg/dL (7-17) 11/20/17 02:55 Creatinine 0.9 mg/dL (0.7-1.2) 11/20/17 02:55 Estimated GFR > 60 ml/min 11/20/17 02:55 BUN/Creatinine Ratio 17 % 11/20/17 02:55 Glucose 106 mg/dL (65-100) H 11/20/17 02:55 Calcium 9.0 mg/dL (8.4-10.2) 11/20/17 02:55 Troponin T < 0.010 ng/mL (0.00-0.029) 11/20/17 17:51 Triglycerides 78 mg/dL (2-149) 11/21/17 05:58 Cholesterol 118 mg/dL (50-199) 11/21/17 05:58 LDL Cholesterol Direct 60 mg/dL (50-130) 11/21/17 05:58 HDL Cholesterol 43 mg/dL (40-59) 11/21/17 05:58 Cholesterol/HDL Ratio 2.74 % 11/21/17 05:58 Vitamin B12 214.6 pg/mL (211-911) 11/20/17 20:57 Folate 12.94 ng/mL (7.3-26.0) 11/20/17 20:59 TSH 2.360 mlU/mL (0.270-4.200) 11/20/17 20:58 Free T4 0.97 ng/dL (0.76-1.46) 11/20/17 20:56 <JEFE TRAN - Last Filed: 11/22/17 09:22> Assessment and Plan Assessment and plan: I saw and evaluated the patient on 11/21/17. I agree with the findings and the plan of care as documented in the Nurse Practitioner's~note, with the following corrections and additions. Hospitalist Physical - Constitutional Vitals: Temp Pulse Resp BP Pulse Ox 98.2 F 75 18 135/67 100 11/22/17 07:53 11/22/17 07:53 11/22/17 07:53 11/22/17 07:53 11/22/17 07:53 Results - Labs CBC & Chem 7: 11/20/17 02:55 11/20/17 02:55 Labs: Laboratory Last Values WBC 7.1 K/mm3 (4.5-11.0) 11/20/17 02:55 RBC 4.75 M/mm3 (3.65-5.03) 11/20/17 02:55 Hgb 14.3 gm/dl (10.1-14.3) 11/20/17 02:55 Hct 42.1 % (30.3-42.9) 11/20/17 02:55 MCV 89 fl (79-97) 11/20/17 02:55 MCH 30 pg (28-32) 11/20/17 02:55 MCHC 34 % (30-34) 11/20/17 02:55 RDW 15.1 % (13.2-15.2) 11/20/17 02:55 Plt Count 233 K/mm3 (140-440) 11/20/17 02:55 Lymph % (Auto) 31.6 % (13.4-35.0) 11/20/17 02:55 [place] % (Auto) 8.3 % (0.0-7.3) H 11/20/17 02:55 Eos % (Auto) 1.3 % (0.0-4.3) 11/20/17 02:55 Baso % (Auto) 1.0 % (0.0-1.8) 11/20/17 02:55 Lymph # 2.2 K/mm3 (1.2-5.4) 11/20/17 02:55 [place] # 0.6 K/mm3 (0.0-0.8) 11/20/17 02:55 Eos # 0.1 K/mm3 (0.0-0.4) 11/20/17 02:55 Baso # 0.1 K/mm3 (0.0-0.1) 11/20/17 02:55 Seg Neutrophils % 57.8 % (40.0-70.0) 11/20/17 02:55 Seg Neutrophils # 4.1 K/mm3 (1.8-7.7) 11/20/17 02:55 PT 12.5 Sec. (12.2-14.9) 11/20/17 02:55 INR 0.89 (0.87-1.13) 11/20/17 02:55 APTT 28.7 Sec. (24.2-36.6) 11/20/17 02:55 Sodium 139 mmol/L (137-145) 11/20/17 02:55 Potassium 4.2 mmol/L (3.6-5.0) 11/20/17 02:55 Chloride 102.2 mmol/L (98-107) 11/20/17 02:55 Carbon Dioxide 23 mmol/L (22-30) 11/20/17 02:55 Anion Gap 18 mmol/L 11/20/17 02:55 BUN 15 mg/dL (7-17) 11/20/17 02:55 Creatinine 0.9 mg/dL (0.7-1.2) 11/20/17 02:55 Estimated GFR > 60 ml/min 11/20/17 02:55 BUN/Creatinine Ratio 17 % 11/20/17 02:55 Glucose 106 mg/dL (65-100) H 11/20/17 02:55 Calcium 9.0 mg/dL (8.4-10.2) 11/20/17 02:55 Troponin T < 0.010 ng/mL (0.00-0.029) 11/20/17 17:51 Triglycerides 78 mg/dL (2-149) 11/21/17 05:58 Cholesterol 118 mg/dL (50-199) 11/21/17 05:58 LDL Cholesterol Direct 60 mg/dL (50-130) 11/21/17 05:58 HDL Cholesterol 43 mg/dL (40-59) 11/21/17 05:58 Cholesterol/HDL Ratio 2.74 % 11/21/17 05:58 Vitamin B12 214.6 pg/mL (211-911) 11/20/17 20:57 Folate 12.94 ng/mL (7.3-26.0) 11/20/17 20:59 TSH 2.360 mlU/mL (0.270-4.200) 11/20/17 20:58 Free T4 0.97 ng/dL (0.76-1.46) 11/20/17 20:56
--- NOTE | 2017-11-21 17:20 | Consultation ---
History of Present Illness Consult date: 11/21/17 History of present illness: 77 year old female presenting with acute CVA. She had 4 strokes in the past. We were consulted due to a 9 beats run of NSVT on telemetry. Patient describes intermittent non-exertional left sided chest pain, non-radiating. She has been having this pain for several months now. ECG is showing no ischemic findings. No previous cardiac work-up. Echo is pertinent for a normal LVEF. There is dyskinesis of the LV apex. 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 denies: smoking (quit in 1998), alcohol abuse (no alcohol and no illicit drugs.) Family history: hypertension (mother), stroke (mother), other (I gave for epilepsy) Medications and Allergies Allergies Allergy/AdvReac Type Severity Reaction Status Date / Time codeine Allergy Unknown Verified 09/28/16 11:30 Sulfa (Sulfonamide Allergy Unknown Verified 05/21/17 14:18 Antibiotics) Home Medications Medication Instructions Recorded Confirmed Last Taken Type ALPRAZolam [Xanax TAB] 0.5 mg PO DAILY 05/10/15 11/20/17 1 Day Ago History ~11/19/17 Clopidogrel [Plavix] 75 mg PO QDAY 05/10/15 11/20/17 1 Day Ago History ~11/19/17 Active Meds: Active Medications Acetaminophen (Tylenol) 650 mg PO Q4H PRN PRN Reason: Pain, Mild (1-3) Last Admin: 11/21/17 05:46 Dose: 650 mg Alprazolam (Xanax) 0.5 mg PO DAILY [facility] Last Admin: 11/21/17 14:59 Dose: 0.5 mg Aspirin (Baby Aspirin) 81 mg PO DAILY [facility] Last Admin: 11/21/17 14:59 Dose: 81 mg Atorvastatin Calcium (Lipitor) 20 mg PO QHS [facility] Last Admin: 11/20/17 22:28 Dose: 20 mg Bisacodyl (Dulcolax) 10 mg MA QDAY PRN PRN Reason: Constipation Carvedilol (Coreg) 3.125 mg PO BID [facility] Last Admin: 11/21/17 14:58 Dose: 3.125 mg Clopidogrel Bisulfate (Plavix) 75 mg PO QDAY [facility] Last Admin: 11/21/17 14:58 Dose: 75 mg Enoxaparin Sodium (Lovenox) 40 mg SUB-Q QDAY@1000 [facility] Last Admin: 11/21/17 14:59 Dose: 40 mg Lisinopril (Zestril) 5 mg PO QDAY [facility] Last Admin: 11/21/17 14:58 Dose: 5 mg Magnesium Hydroxide (Milk Of Magnesia) 30 ml PO Q4H PRN PRN Reason: Constipation Ondansetron HCl (Zofran) 4 mg IV Q8H PRN PRN Reason: N/V unrelieved by Reglan Sodium Chloride (Sodium Chloride Flush Syringe 10 Ml) 10 ml IV PRN PRN PRN Reason: LINE FLUSH Review of Systems All systems: negative Physical Examination Vital Signs Pulse Ox 98 11/20/17 03:12 General appearance: no acute distress Neck: Positive: neck supple Cardiac: Positive: Reg Rate and Rhythm Abdomen: Positive: Soft Extremities: Absent: edema Results 11/20/17 02:55 11/20/17 02:55 Lipids 11/21/17 Range/Units 05:58 Triglycerides 78 (2-149) mg/dL Cholesterol 118 (50-199) mg/dL HDL Cholesterol 43 (40-59) mg/dL Cholesterol/HDL Ratio 2.74 % Assessment and Plan NSVT Atypical chest pain Normal LVEF Apical dyskinesis Acute CVA Left basal ganglia CVA Remote history of CVA No history of seizures Systemic Hypertension Recommendations: Continue coreg Schedule for lexiscan in am
[2017-11-21] MEDS ORDERED: AMBIEN PO ONE (23:51)
[2017-11-22] MEDS: XANAX PO SCH (11:12)
[2017-11-22] MEDS: ZESTRIL PO SCH (11:12)
[2017-11-22] MEDS: BABY ASPIRIN PO SCH (11:12)
[2017-11-22] MEDS: LOVENOX SUB-Q SCH (11:13)
[2017-11-22] MEDS: COREG PO SCH (11:13)
[2017-11-22] MEDS: PLAVIX PO SCH (11:14)
--- NOTE | 2017-11-22 11:41 | Progress Note ---
<JONATAN MARTINEZ - Last Filed: 11/22/17 11:50> Assessment and Plan Acute CVA Left basal ganglia CVA Remote history of CVA No history of seizures on plavix and aspirin NSVT -no reoccurrence normal SH on coreg for suppression normal LVEF Systemic Hypertension Recommendations: Continue coreg for suppression of NSVT. Otherwise, conservative cardiac management. Subjective Date of service: 11/22/17 Interval history: No cardiac events reported overnight. Objective Vital Signs Temp Pulse Resp BP BP Pulse Ox 11/22/17 11:13 78 128/78 11/22/17 11:12 78 128/78 11/22/17 07:53 98.2 F 97 H 18 135/67 79 L 11/22/17 04:03 98.2 F 64 18 113/51 95 11/22/17 01:06 98.4 F 78 18 100/70 92 11/21/17 23:53 78 11/21/17 21:44 78 142/68 11/21/17 20:15 98.2 F 79 20 130/73 97 11/21/17 16:14 97.5 F L 78 18 142/64 94 11/21/17 15:00 70 - Physical Examination General: No Apparent Distress Cardiac: Positive: Reg Rate and Rhythm Abdomen: Positive: Soft Extremities: Absent: edema - Imaging and Cardiology EKG: image reviewed <TONY CASTELLANOS - Last Filed: 11/22/17 18:27> Assessment and Plan - Patient Problems (1) CVA (cerebral vascular accident) Current Visit: Yes Status: Acute Plan to address problem: 77-year-old woman who presented with unilateral weakness and slurred speech, consistent with an acute CVA. She was outside the window for TPA, but has shown some improvement with conservative management. Her speech is currently improved, but she still has difficulty with her gait and ambulating. She also reports that 3 years ago she suffered another stroke, following which she was placed on daily aspirin and Plavix. She was on Plavix and aspirin until her current presentation. We'll defer to neurology regarding further workup and management in this patient with recurrent CVA despite dual oral antiplatelet therapy. Cardiac-carrillo , echocardiogram was ordered for left ventricular function assessment, and she is planned for noninvasive ischemic assessment. Due to her acute CVA, the patient's prefers stress testing to be done electively as an outpatient after she shows some significant recovery from her stroke. We'll see the patient in our office in one to 2 weeks. Objective Vital Signs Temp Pulse Resp BP BP Pulse Ox 11/22/17 16:14 66 97 11/22/17 16:13 98.0 F 64 20 146/65 97 11/22/17 11:49 98.3 F 78 20 127/80 99 11/22/17 11:13 78 128/78 11/22/17 11:12 78 128/78 11/22/17 07:53 98.2 F 97 H 18 135/67 79 L 11/22/17 04:03 98.2 F 64 18 113/51 95 11/22/17 01:06 98.4 F 78 18 100/70 92 11/21/17 23:53 78 11/21/17 21:44 78 142/68 11/21/17 20:15 98.2 F 79 20 130/73 97
--- NOTE | 2017-11-22 13:13 | Discharge Summary ---
Providers - Providers Date of Admission: 11/20/17 06:14 Date of discharge: 11/22/17 Attending physician: JEFE TRAN 11/20/17 06:14 Occupational Therapy Evaluate and Treat [CONS] Routine Comment: Reason For Exam: Neuro deficits Physical Therapy Evaluation and Treat [CONS] Routine Comment: Reason For Exam: Neuro deficits 11/20/17 12:01 Consult to Physician [CONS] Routine Consulting Provider: SANDRA VERAS Reason For Exam: CVA Place consult to:: Dr. Veras Notified:: Zeina GILL Was contact made?: Yes If yes, spoke with:: Dr. Veras Time called:: 12:23 11/21/17 10:38 Consult to Physician [CONS] Routine Consulting Provider: MELINDA MARTÍNEZ Reason For Exam: NSVT on monitor Place consult to:: Dr. Martínez Notified:: Supriya GILL Was contact made?: Yes If yes, spoke with:: Dr. Martínez Time called:: 12:54 Primary care physician: YAEL CLAY Hospitalization Condition: Fair Pertinent studies: MRI brain revealed 1.4 x 0.6 cm area of subacute ischemia in the left posterior basal ganglia as described. Other chronic findings as noted above. CTA head No evidence of intracranial aneurysm, arterial thrombosis, or arterial stenosis. The dural venous sinuses opacify normally. CTA neck showed No evidence of arterial stenosis, thrombosis or dissection involving the carotid or vertebral arteries. No acute process in the neck. CT head and brain Age related atrophy. No evidence of acute stroke or hemorrhage. Remote stroke in the left cerebellar hemisphere. Echocardiogram showed an ejection fraction of 45-50% with global left ventricular systolic function mildly decreased Hospital course: 77 year old woman with history of hypertension, CVA comes to the emergency room with right side weakness and numbness of the face. She states that she went to bed at mid-night and woke up at 2am with the above symptoms -Patient underwent neurological workup which revealed Right MCA embolic stroke. Neurology services were consult in and the recommendation was made for patient to undergo a 30 day event monitoring on an outpatient basis to rule out paroxysmal atrial fibrillation. Patient was initiated and discharged on aspirin , statin therapy and Plavix. Recommendations were made for outpatient physical therapy. -Patient was treated initiated on and discharged with lisinopril and Coreg for hypertension. Patient was clinically stable for discharge back to her home with appropriate medications. Discharge diagnoses CVA Hypertension No NSVT DVT prophylaxis Disposition: DC-01 TO HOME OR SELFCARE Time spent for discharge: 32 minutes Exam - Constitutional Vitals: Temp Pulse Resp BP Pulse Ox 98.3 F 90 20 127/80 99 11/22/17 11:49 11/22/17 11:49 11/22/17 11:49 11/22/17 11:49 11/22/17 11:49 Plan Activity: advance as tolerated, fall precautions Diet: low fat, low cholesterol, low salt Follow up with: YAEL CLAY MD [Primary Care Provider] - 3-5 Days Prescriptions: AtorvaSTATin [Lipitor] 20 mg PO QHS #30 tablet Aspirin [Aspirin BABY CHEW TAB] 81 mg PO DAILY #30 tab.chew Carvedilol [Coreg] 3.125 mg PO BID #60 tablet Lisinopril [Zestril TAB] 5 mg PO QDAY #30 tablet Other Discharge Orders: Physicial Therapy (Amb) Location: None Selected Physicial Therapy (Amb) Location: None Selected
[2017-11-22 16:37] VITALS: BP 146/65
== END 2017-11-22 18:07 | disposition home or self-care (01) | DRG 65 ==
LOC: ED 02:53 → 4A 06:14
PROVIDERS: ADMIT Internal Medicine; ATTEND Internal Medicine
DX: I63.9 Cerebral infarction, unspecified (principal); G81.91 Hemiplegia, unspecified affecting right dominant side; I10 Essential (primary) hypertension; F41.9 Anxiety disorder, unspecified; R07.89 Other chest pain; Z90.49 Acquired absence of other specified parts of digestive tract; Z90.710 Acquired absence of both cervix and uterus; Z79.899 Other long term (current) drug therapy; Z82.49 Family history of ischemic heart disease and other diseases of the circulatory system; Z88.5 Allergy status to narcotic agent; Z88.2 Allergy status to sulfonamides; Z82.3 Family history of stroke; Z79.82 Long term (current) use of aspirin; Z82.0 Family history of epilepsy and other diseases of the nervous system
CPT/HCPCS: 36415; 70450; 70496; 70498; 70551; 80048; 80061; 82306; 82607; 82747; 82962; 84425; 84439; 84443; 84484; 85025; 85610; 85730; 93005; 93010; 93306; 96374; A9270-GY; G8978-GP; G8979-GP; G8987-GO; G8988-GO; G8989-GO; J1200; J1650; J2405; Q9967

== ENCOUNTER 2018-01-04 08:32 | Day surgery (SDC) | payer MEDICARE ==
--- NOTE | 2018-01-04 09:22 | Anesthesia Consultation ---
Anesthesia Consult and Med Hx Date of service: 01/04/18 - Airway Anesthetic Teeth Evaluation: Dentures (upper and lower) ROM Head & Neck: Adequate Mental/Hyoid Distance: Adequate Mallampati Class: Class II Intubation Access Assessment: Probably Good - Pre-Operative Health Status ASA Pre-Surgery Classification: ASA3 Proposed Anesthetic Plan: MAC - Pulmonary Hx Smoking: Yes (former smoker) - Cardiovascular System Hx Hypertension: Yes Hx Cardia Arrhythmia: Yes - Central Nervous System CVA: Yes Hx Psychiatric Problems: Yes (anxiety)
--- NOTE | 2018-01-04 09:23 | Anesthesia Day of Surgery ---
Anesthesia Day of Surgery - Day of Surgery Patient Examined: Yes Patient H&P Reviewed: Yes Patient is NPO: Yes Beta Blockers: Yes
[2018-01-04] MEDS ORDERED: NACL 0.9% 500 ML 500 ML IV SCH (10:00)
[2018-01-04] MEDS ORDERED: VERSED ONE (10:44)
[2018-01-04] MEDS ORDERED: AMIDATE IV ONE (10:44)
[2018-01-04] MEDS ORDERED: DIPRIVAN 10 MG/ML IV ONE (10:44)
[2018-01-04] MEDS ORDERED: DILAUDID ONE (10:45)
[2018-01-04] MEDS ORDERED: HURRICAINE ONE 20% TOPICAL SPRAY MM NR (11:00)
--- NOTE | 2018-01-04 11:14 | Short Stay Summary ---
Short Stay Documentation Date of service: 01/04/18 - History H&P: obtained from office - Allergies and Medications Current Medications: Allergies codeine Allergy (Severe, Verified 01/04/18 09:00) Hallucination Sulfa (Sulfonamide Antibiotics) Allergy (Severe, Verified 01/04/18 09:00) Tongue swelling, rash Home Medications Medication Instructions Recorded Confirmed Last Taken Type ALPRAZolam [Xanax TAB] 0.5 mg PO DAILY 05/10/15 01/04/18 01/04/18 History 0.5mg Clopidogrel [Plavix] 75 mg PO QDAY 05/10/15 01/04/18 01/04/18 History 75mg Aspirin [Aspirin BABY CHEW TAB] 81 mg PO DAILY #30 tab.chew 11/22/17 01/04/18 Rx 81mg AtorvaSTATin [Lipitor] 20 mg PO QHS #30 tablet 11/22/17 01/04/18 01/03/18 Rx 20mg Lisinopril [Zestril TAB] 5 mg PO QDAY #30 tablet 11/22/17 01/04/18 01/04/18 Rx 5mg Carvedilol [Coreg] 12.5 mg PO BID 01/04/18 01/04/18 01/04/18 History 12.5mg Active Medications Benzocaine (Hurricaine One 20% Topical Cardale) 3 spray MM PREOP NR Stop: 01/04/18 23:59 Sodium Chloride (Nacl 0.9% 500 Ml) 500 mls @ 50 mls/hr IV DIRECT KULDIP Last Admin: 01/04/18 09:48 Dose: 50 mls/hr - Physical exam General appearance: no acute distress Integumentary: no rash HEENT: Atraumatic Lungs: Clear to auscultation Breasts: deferred Heart: Regular rate Gastrointestinal: normal Female Genitourinary: deferred Rectal Exam: deferred Extremities: no ischemia Neurological: Normal gait - Brief post op/procedure progress note Date of procedure: 01/04/18 Pre-op diagnosis: CVA Post-op diagnosis: same Procedure: ALEXA Anesthesia: MAC Findings: See report Surgeon: MELINDA MARTÍNEZ Estimated blood loss: none Pathology: none Condition: stable - Hospital course Hospital course: Uneventful - Disposition Condition at discharge: Good Disposition: DC-01 TO HOME OR SELFCARE Short Stay Discharge Plan Activity: advance as tolerated Weight Bearing Status: Weight Bear as Tolerated Diet: low fat, low cholesterol, low salt Follow up with: FACUNDO CASAS MD [Primary Care Provider] - 7 Days Prescriptions: Warfarin [Coumadin] 5 mg PO QDAY #30 tablet
[2018-01-04 13:06] VITALS: BP 138/76
== END 2018-01-04 13:15 | disposition home or self-care (01) ==
LOC: CATHLABREC 08:32 → ECHO 08:32 → EDSTATUS 09:30 → CATHLABREC 13:15
PROVIDERS: ATTEND Internal Medicine
DX: I08.1 Rheumatic disorders of both mitral and tricuspid valves (principal); I37.1 Nonrheumatic pulmonary valve insufficiency; Z79.899 Other long term (current) drug therapy
CPT/HCPCS: 93312; 93320; 93325; J2250; J2704; J7040; J1170

== ENCOUNTER 2019-07-02 10:42 | Emergency (ER) | payer MEDICARE, OTHER ==
[2019-07-02 11:13] VITALS: BP 161/75
--- NOTE | 2019-07-02 11:25 | XRay Report ---
RIGHT ANKLE HISTORY: Slip and fall and pain. COMPARISON: None. TECHNIQUE: 3 views of the right ankle obtained. FINDINGS: Bones: Mild diffuse osteopenia. An oblique mildly displaced fracture of the distal fibula with slight lateral and posterior displacement of the major distal fracture fragment. Comminuted minimally displ aced fracture of the medial malleolus. No callus at any of the fracture sites. Joint spaces: Maintained. Soft tissues: Moderate lateral gradient will then medial soft tissue swelling. No foreign body. Additional findings: Plantar and Achilles calcaneal spurs. IMPRESSION: Acute traumatic closed bimalleolar fractures. The fracture of the distal fibula is mildly displaced a nd there is minimal displacement of the fracture/fractures of the medial malleolus. Calcaneal entheso price. Signer Name: Eddie Morales MD Signed: 07/02/2019 11:21 AM Workstation Name: [id number]
[2019-07-02] MEDS ORDERED: IBUPROFEN PO ONE (11:40)
[2019-07-02] MEDS ORDERED: TYLENOL PO ONE (11:42)
--- NOTE | 2019-07-02 13:03 | Emergency Department Report ---
HPI - General Chief Complaint: Extremity Injury, Lower Time Seen by Provider: 07/02/19 11:21 - HPI HPI: 78-year-old female presents to the emergency department with the complaint of right ankle pain and swelling after she twisted her ankle in her garage around 10 AM this morning. She says that her foot went one way and the leg when another. She was able to pull herself up her ramp into her house and call for help. She has decreased range of motion and is unable to bear weight secondary to the pain. She has a past medical history of arthritis, previous CVA, hypertension. ED Past Medical Hx - Past Medical History Previous Medical History?: Yes Hx Hypertension: Yes (1998) Hx CVA: Yes Hx Heart Attack/AMI: No Hx Congestive Heart Failure: No Hx Diabetes: No Hx Arthritis: Yes - Surgical History Past Surgical History?: Yes Hx Cholecystectomy: Yes Hx Appendectomy: Yes Additional Surgical History: TONSILLECTOMY. HYSTERECTOMY - Social History Smoking Status: Never Smoker Substance Use Type: None - Medications Home Medications: Home Medications Medication Instructions Recorded Confirmed Last Taken Type ALPRAZolam [Xanax TAB] 0.5 mg PO DAILY 05/10/15 01/04/18 01/04/18 History 0.5mg Aspirin [Aspirin BABY CHEW TAB] 81 mg PO DAILY #30 tab.chew 11/22/17 01/04/18 01/04/18 Rx 81 mg AtorvaSTATin [Lipitor] 20 mg PO QHS #30 tablet 11/22/17 01/04/18 01/03/18 Rx 20 mg Lisinopril [Zestril TAB] 5 mg PO QDAY #30 tablet 11/22/17 01/04/18 01/04/18 Rx 5 mg Carvedilol [Coreg] 12.5 mg PO BID 01/04/18 01/04/18 01/04/18 History 12.5mg Warfarin [Coumadin] 5 mg PO QDAY #30 tablet 01/04/18 Unknown Rx ED Review of Systems ROS: Stated complaint: FALL/R ANKLE PAIN Other details as noted in HPI Comment: All other systems reviewed and negative Constitutional: denies: chills, fever (we'll) Gastrointestinal: denies: abdominal pain Musculoskeletal: joint swelling, arthralgia Neurological: denies: numbness, paresthesias Physical Exam - Physical Exam Vital Signs: Vital Signs 07/02/19 07/02/19 10:49 11:11 Temperature 98.4 F 98.2 F Pulse Rate 75 81 Respiratory 16 18 Rate Blood Pressure 153/81 161/75 O2 Sat by Pulse 97 99 Oximetry Physical Exam: GENERAL: The patient is well-developed well-nourished. HENT: Normocephalic. Atraumatic. Patient has moist mucous membranes. EYES: Extraocular motions are intact. NECK: Supple. Trachea is midline. CHEST/LUNGS: Clear to auscultation. There is no respiratory distress noted. HEART/CARDIOVASCULAR: Regular. There is no tachycardia. There is no murmur. ABDOMEN: There is no abdominal distention. SKIN: There is some circumferential nonpitting swelling to the right ankle. NEURO: The patient is awake, alert, and oriented. The patient is cooperative. The patient has no focal neurologic deficits. Normal speech. MUSCULOSKELETAL: Tenderness to palpation to the circumferential right ankle. Decreased range of motion of the foot and ankle secondary to pain. +2 over 4 dorsalis pedis pulse and capillary refill less than 2 seconds to the affected right foot. ED Course Vital Signs 07/02/19 07/02/19 10:49 11:11 Temperature 98.4 F 98.2 F Pulse Rate 75 81 Respiratory 16 18 Rate Blood Pressure 153/81 161/75 O2 Sat by Pulse 97 99 Oximetry ED Medical Decision Making - Radiology Data Radiology results: image reviewed interpreted by me: X-ray of the right ankle shows a bimalleolar fracture that appears mostly nondisplaced. - Medical Decision Making This patient presents with some right ankle pain and swelling after a slip and fall earlier in the morning. X-ray shows a bimalleolar fracture. The patient is neurovascularly intact. She was placed in a [place] splint. She was given a walker and has crutches at home. She will remain nonweightbearing and in the splint until follow-up with an orthopedist. She will return to the ER with any worsening of her symptoms or any acute distress. - Differential Diagnosis fracture, dislocation, ankle sprain Critical Care Time: No Critical care attestation.: If time is entered above; I have spent that time in minutes in the direct care of this critically ill patient, excluding procedure time. ED Disposition Clinical Impression: Bimalleolar fracture of right ankle Qualifiers: Encounter type: initial encounter Fracture type: closed Qualified Code(s): S82.841A - Displaced bimalleolar fracture of right lower leg, initial encounter for closed fracture Disposition: TO HOME OR SELFCARE Is pt being admited?: No Condition: Stable Instructions: Ankle Fracture (ED) Additional Instructions: Please follow-up with an orthopedist in a few days regarding your ankle fracture. Stay in the splint and remain nonweightbearing to the affected right ankle until follow-up with the orthopedist. Return to the emergency Department with any worsening of your symptoms or any acute distress. Referrals: [facility] [Provider Group] - 3-5 Days Time of Disposition: 13:03
== END 2019-07-02 13:15 | disposition home or self-care (01) ==
LOC: ED 10:42
DX: S82.841A Displaced bimalleolar fracture of right lower leg, initial encounter for closed fracture (principal); I10 Essential (primary) hypertension; M19.90 Unspecified osteoarthritis, unspecified site; Z90.49 Acquired absence of other specified parts of digestive tract; Z88.2 Allergy status to sulfonamides; Z88.5 Allergy status to narcotic agent; Z90.710 Acquired absence of both cervix and uterus; Z79.82 Long term (current) use of aspirin; Z79.01 Long term (current) use of anticoagulants; W01.198A Fall on same level from slipping, tripping and stumbling with subsequent striking against other object, initial encounter; Y93.89 Activity, other specified; Y92.89 Other specified places as the place of occurrence of the external cause; Y99.8 Other external cause status

== ENCOUNTER 2021-08-11 12:08 | Emergency (ER) | payer MEDICARE, OTHER ==
[2021-08-11] MEDS ORDERED: TETANUS,DIPH,PERTUSS(ACELL) VACCINE 0.5 ML SYRINGE IM ONE (12:47)
--- NOTE | 2021-08-11 13:10 | Emergency Department Report ---
ED Fall HPI - General Chief Complaint: Fall Stated Complaint: FALL Time Seen by Provider: 08/11/21 12:20 Source: patient Mode of arrival: Ambulatory Limitations: No Limitations - History of Present Illness Initial Comments: 80-year-old female presents to the hospital status post head injury after fall. Patient is currently on Xarelto. She fell backwards on her rolling desk chair striking the back of her head on the ground and sustained superficial skin tears to right wrist and left elbow. Patient denies LOC. Mild to moderate tenderness to palpation at scalp hematoma report. She denies nausea, vomiting, blurred vision, focal weakness, or significant headache. Patient is unsure if she has had a tetanus shot within the last 10 years - Related Data Home Medications Medication Instructions Recorded Confirmed Last Taken ALPRAZolam [Xanax TAB] 0.5 mg PO DAILY 05/10/15 01/04/18 01/04/18 0.5mg carvediloL [Coreg] 12.5 mg PO BID 01/04/18 01/04/18 01/04/18 12.5mg Previous Rx's Medication Instructions Recorded Last Taken Type Aspirin [Aspirin BABY CHEW TAB] 81 mg PO DAILY #30 tab.chew 11/22/17 01/04/18 Rx 81 mg AtorvaSTATin [Lipitor] 20 mg PO QHS #30 tablet 11/22/17 01/03/18 Rx 20 mg lisinopriL [Zestril TAB] 5 mg PO QDAY #30 tablet 11/22/17 01/04/18 Rx 5 mg Warfarin [Coumadin] 5 mg PO QDAY #30 tablet 01/04/18 Unknown Rx Allergies Allergy/AdvReac Type Severity Reaction Status Date / Time codeine Allergy Severe Hallucinati Verified 08/11/21 12:12 on Sulfa (Sulfonamide Allergy Severe Tongue Verified 08/11/21 12:12 Antibiotics) swelling, rash ED Review of Systems ROS: Stated complaint: FALL Other details as noted in HPI Comment: All other systems reviewed and negative ED Past Medical Hx - Past Medical History Hx Hypertension: Yes (1998) Hx CVA: Yes Hx Heart Attack/AMI: No Hx Congestive Heart Failure: No Hx Diabetes: No Hx Arthritis: Yes - Surgical History Hx Cholecystectomy: Yes Hx Appendectomy: Yes Additional Surgical History: TONSILLECTOMY. HYSTERECTOMY - Social History Smoking Status: Never Smoker Substance Use Type: None - Medications Home Medications: Home Medications Medication Instructions Recorded Confirmed Last Taken Type ALPRAZolam [Xanax TAB] 0.5 mg PO DAILY 05/10/15 01/04/18 01/04/18 History 0.5mg Aspirin [Aspirin BABY CHEW TAB] 81 mg PO DAILY #30 tab.chew 11/22/17 01/04/18 01/04/18 Rx 81 mg AtorvaSTATin [Lipitor] 20 mg PO QHS #30 tablet 11/22/17 01/04/18 01/03/18 Rx 20 mg lisinopriL [Zestril TAB] 5 mg PO QDAY #30 tablet 11/22/17 01/04/18 01/04/18 Rx 5 mg Warfarin [Coumadin] 5 mg PO QDAY #30 tablet 01/04/18 Unknown Rx carvediloL [Coreg] 12.5 mg PO BID 01/04/18 01/04/18 01/04/18 History 12.5mg ED Physical Exam - General Limitations: No Limitations - Other Other exam information: General: No acute distress Head: Posterior/occipital scalp hematoma tender to palpation Eyes: normal appearance ENT: Moist mucous membranes Neck: Normal appearance, no midline tenderness Chest: Clear to auscultation bilaterally CV: Regular rate and rhythm Abdomen: Soft, normal bowel sounds, nontender, nondistended, no rebound or guarding Back: Normal inspection Extremity: Superficial 2 cm skin laceration/tear to dorsum of right wrist at the radius area and superficial to skin tear with partial avulsion to the left superior elbow. Full range of motion of wrist and elbow without bony tenderness. Neuro: Alert O x 3, no facial asymmetry, speech clear, no gross motor sensory deficit Psych: Appropriate behavior Skin: Skin tears as per extremity exam ED Course Vital Signs 08/11/21 08/11/21 12:13 12:54 Temperature 97.7 F Pulse Rate 68 Respiratory 16 Rate Blood Pressure 162/72 [Left] O2 Sat by Pulse 99 99 Oximetry - Laceration /Wound Repair Left Elbow Wound Location: upper extremity Wound Length (cm): 2 Wound's Depth, Shape: superficial Wound Explored: clean Irrigated w/ Saline (ccs): 20 Betadine Prep?: Yes Wound Debrided: none Wound Repaired With: Steri-strips, Dermabond Layer Closure?: No Sterile Dressing Applied?: No Right Wrist Wound Location: upper extremity Wound Length (cm): 2 Wound's Depth, Shape: superficial Wound Explored: clean Betadine Prep?: Yes Wound Repaired With: Steri-strips, Dermabond Layer Closure?: No Sterile Dressing Applied?: No ED Medical Decision Making - Radiology Data Radiology results: report reviewed CT HEAD WITHOUT CONTRAST INDICATION / CLINICAL INFORMATION: fall, head injury, on xarelto. TECHNIQUE: All CT scans at this location are performed using CT dose reduction for ALARA by means of automated exposure control. COMPARISON: CT head 11/20/2017 FINDINGS: HEMORRHAGE: None. ACUTE INFARCTION: No Significant Abnormality MASS/MASS EFFECT: No Significant Abnormality CEREBRAL PARENCHYMA: No acute focal attenuation abnormality. Moderate small vessel ischemic changes. 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 VENTRICULAR SYSTEM: Normal in size and morphology for the patient's age. ORBITS: Normal as visualized. SKULL: No significant abnormality. PARANASAL SINUSES / MASTOID AIR CELLS: Normal as visualized. ADDITIONAL FINDINGS: None. IMPRESSION: 1. No acute intracranial abnormality. Remote and senescent changes as above. CT CERVICAL SPINE WITHOUT CONTRAST INDICATION / CLINICAL INFORMATION: fall, head injury, on xarelto. TECHNIQUE: Axial CT images of the spine were obtained. Sagittal and coronal reformatted images were produced. All CT scans at this location are performed using CT dose reduction for ALARA by means of automated exposure control. COMPARISON: None available. FINDINGS: Acute Fracture(s) or Subluxation: None. Spinal Degenerative Changes: Moderate multilevel degenerative change Paraspinal soft tissues: No soft tissue swelling or other acute abnormalities. Additional Findings: No significant additional findings. IMPRESSION: 1. No acute traumatic injury of the cervical spine. - Medical Decision Making 80-year female presents to the hospital with minor head injury on Xarelto. Patient has superficial skin tears/avulsions. Skin was approximated Dermabond and Steri-Strips applied for reinforcement. CT head and cervical spine unremarkable. Patient received tetanus. Discharged home with follow-up Critical Care Time: No Critical care attestation.: If time is entered above; I have spent that time in minutes in the direct care of this critically ill patient, excluding procedure time. 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 Return if symptoms worsen as indicated by your discharge instructions. You received a tetanus shot today. Referrals: PRIMARY CARE, [Primary Care Provider] - 3-5 Days Time of Disposition: 13:40
--- NOTE | 2021-08-11 13:31 | Cat Scan Report ---
CT HEAD WITHOUT CONTRAST INDICATION / CLINICAL INFORMATION: fall, head injury, on xarelto. TECHNIQUE: All CT scans at this location are performed using CT dose reduction for ALARA by means of automated exposure control. COMPARISON: CT head 11/20/2017 FINDINGS: HEMORRHAGE: None. ACUTE INFARCTION: No Significant Abnormality MASS/MASS EFFECT: No Significant Abnormality CEREBRAL PARENCHYMA: No acute focal attenuation abnormality. Moderate small vessel ischemic changes. 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 VENTRICULAR SYSTEM: Normal in size and morphology for the patient's age. ORBITS: Normal as visualized. SKULL: No significant abnormality. PARANASAL SINUSES / MASTOID AIR CELLS: Normal as visualized. ADDITIONAL FINDINGS: None. IMPRESSION: 1. No acute intracranial abnormality. Remote and senescent changes as above. Signer Name: Candelario Calvert MD Signed: 08/11/2021 1:27 PM Workstation Name: [id number]
--- NOTE | 2021-08-11 13:33 | Cat Scan Report ---
CT CERVICAL SPINE WITHOUT CONTRAST INDICATION / CLINICAL INFORMATION: fall, head injury, on xarelto. TECHNIQUE: Axial CT images of the spine were obtained. Sagittal and coronal reformatted images were p roduced. All CT scans at this location are performed using CT dose reduction for ALARA by means of au tomated exposure control. COMPARISON: None available. FINDINGS: Acute Fracture(s) or Subluxation: None. Spinal Degenerative Changes: Moderate multilevel degenerative change Paraspinal soft tissues: No soft tissue swelling or other acute abnormalities. Additional Findings: No significant additional findings. IMPRESSION: 1. No acute traumatic injury of the cervical spine. Signer Name: Candelario Calvert MD Signed: 08/11/2021 1:29 PM Workstation Name: [id number]
[2021-08-11 13:57] VITALS: BP 180/83
== END 2021-08-11 13:59 | disposition home or self-care (01) ==
LOC: ED 12:08
DX: S51.012A Laceration without foreign body of left elbow, initial encounter (principal); S61.511A Laceration without foreign body of right wrist, initial encounter; S00.03XA Contusion of scalp, initial encounter; I10 Essential (primary) hypertension; Z90.49 Acquired absence of other specified parts of digestive tract; Z90.89 Acquired absence of other organs; Z88.5 Allergy status to narcotic agent; Z88.2 Allergy status to sulfonamides; Z79.01 Long term (current) use of anticoagulants; Z79.899 Other long term (current) drug therapy; Z79.82 Long term (current) use of aspirin; W18.39XA Other fall on same level, initial encounter; Y93.89 Activity, other specified; Y92.89 Other specified places as the place of occurrence of the external cause; Y99.8 Other external cause status
CPT/HCPCS: 70450; 72125; 90471; 90715; 99283

== ENCOUNTER 2021-12-20 13:12 | Emergency (ER) | payer MEDICARE, OTHER ==
[2021-12-20 14:03] VITALS: BP 130/73
--- NOTE | 2021-12-20 14:56 | Cat Scan Report ---
CT BRAIN: 12/20/2021 INDICATION / CLINICAL INFORMATION: fall on blood thinner. COMPARISON: CT brain 08/11/2021 FINDINGS: BRAIN/INTRACRANIAL STRUCTURES: Unenhanced CT images of the brain demonstrate no evidence of acute abn ormality. Ventricles and sulci are prominent in size, consistent with prominent age-related atrophic change. Chronic encephalomalacia in the inferior aspect of the left cerebellar hemisphere and posterior centr al aspect of the right cerebellar hemisphere is again noted. Chronic white matter hypoattenuation is present throughout the cerebral hemispheric white matter. There is no evidence of acute large vessel territory ischemic injury, hemorrhage, or mass. There are no abnormal extra-axial fluid collections. Atherosclerotic vascular calcifications are present in the distal internal carotid arteries and verte bral arteries. EXTRACRANIAL STRUCTURES: Unremarkable. IMPRESSION: No acute abnormality. Chronic ischemic and age-related changes. No significant change when compared to 08/11/2021. All CT scans at this location are performed using dose reduction to ALARA by means of automated expos ure control. Signer Name: Cas Eisenberg MD Signed: 12/20/2021 2:52 PM Workstation Name: [id number]
--- NOTE | 2021-12-20 14:59 | Emergency Department Report ---
ED Head Trauma HPI - General Chief complaint: Fall Stated complaint: HIT HEAD Time Seen by Provider: 12/20/21 14:11 Source: patient Mode of arrival: Ambulatory Limitations: No Limitations - History of Present Illness Initial comments: Patient is a pleasant 81-year-old female that comes to the ER 3 days after falling in her home bumping the back of her head. Her fall was mechanical, she states she slipped, it was ground-level. She recalls events of the fall. She states that she did not think anything of it at the time but her family has encouraged her to be checked because she is on blood thinners and she has had a prior bleed while on blood thinners. On exam she is ambulatory and neurologically intact. The fall was in her home. It was witnessed. There is no prolonged downtime. Patient is on Daniel FOSTER Complaint: head injury -: Gradual, days(s) Location: occipital Loss of Consciousness: no Previous Trauma to this Area: Yes Place: home Severity scale (0 -10): 0 Provoking factors: none known Associated Symptoms: denies other symptoms - Related Data Home Medications Medication Instructions Recorded Confirmed Last Taken ALPRAZolam [Xanax TAB] 0.5 mg PO DAILY 05/10/15 01/04/18 01/04/18 0.5mg carvediloL [Coreg] 12.5 mg PO BID 01/04/18 01/04/18 01/04/18 12.5mg Previous Rx's Medication Instructions Recorded Last Taken Type Aspirin [Aspirin BABY CHEW TAB] 81 mg PO DAILY #30 tab.chew 11/22/17 01/04/18 Rx 81 mg AtorvaSTATin [Lipitor] 20 mg PO QHS #30 tablet 11/22/17 01/03/18 Rx 20 mg lisinopriL [Zestril TAB] 5 mg PO QDAY #30 tablet 11/22/17 01/04/18 Rx 5 mg Allergies/Adverse reactions: Allergies Allergy/AdvReac Type Severity Reaction Status Date / Time codeine Allergy Severe Hallucinati Verified 08/11/21 12:12 on Sulfa (Sulfonamide Allergy Severe Tongue Verified 08/11/21 12:12 Antibiotics) swelling, rash ED Review of Systems ROS: Stated complaint: HIT HEAD Other details as noted in HPI Comment: All other systems reviewed and negative ED Past Medical Hx - Past Medical History Previous Medical History?: Yes Hx Hypertension: Yes (1998) Hx CVA: Yes Hx Heart Attack/AMI: No Hx Congestive Heart Failure: No Hx Diabetes: No Hx Arthritis: Yes - Surgical History Past Surgical History?: Yes Hx Cholecystectomy: Yes Hx Appendectomy: Yes Additional Surgical History: TONSILLECTOMY. HYSTERECTOMY - Family History Family history: no significant - Social History Smoking Status: Never Smoker Substance Use Type: None - Medications Home Medications: Home Medications Medication Instructions Recorded Confirmed Last Taken Type ALPRAZolam [Xanax TAB] 0.5 mg PO DAILY 05/10/15 01/04/18 01/04/18 History 0.5mg Aspirin [Aspirin BABY CHEW TAB] 81 mg PO DAILY #30 tab.chew 11/22/17 01/04/18 01/04/18 Rx 81 mg AtorvaSTATin [Lipitor] 20 mg PO QHS #30 tablet 11/22/17 01/04/18 01/03/18 Rx 20 mg lisinopriL [Zestril TAB] 5 mg PO QDAY #30 tablet 11/22/17 01/04/18 01/04/18 Rx 5 mg carvediloL [Coreg] 12.5 mg PO BID 01/04/18 01/04/18 01/04/18 History 12.5mg ED Physical Exam - General Limitations: No Limitations General appearance: alert, in no apparent distress - Head Head exam: Present: atraumatic, normocephalic - Eye Eye exam: Present: normal appearance - ENT ENT exam: Present: mucous membranes moist - Neck Neck exam: Present: normal inspection - Respiratory Respiratory exam: Present: normal lung sounds bilaterally. Absent: respiratory distress - Cardiovascular Cardiovascular Exam: Present: regular rate, normal rhythm. Absent: systolic murmur, diastolic murmur, rubs, gallop - GI/Abdominal GI/Abdominal exam: Present: soft, normal bowel sounds - Extremities Exam Extremities exam: Present: normal inspection - Back Exam Back exam: Present: normal inspection - Neurological Exam Neurological exam: Present: alert, oriented X3 - Psychiatric Psychiatric exam: Present: normal affect, normal mood - Skin Skin exam: Present: warm, dry, intact, normal color. Absent: rash ED Course Vital Signs 12/20/21 13:58 Temperature 97.5 F L Pulse Rate 77 Respiratory 16 Rate Blood Pressure 130/73 O2 Sat by Pulse 98 Oximetry - Radiology Data Radiology results: report reviewed, image reviewed No acute process - Medical Decision Making Vital Signs 12/20/21 13:58 Temperature 97.5 F L Pulse Rate 77 Respiratory 16 Rate Blood Pressure 130/73 O2 Sat by Pulse [address] scan completed because patient is of age and on blood thinners. CT head noted to be normal. Patient is neurologically intact on initial and discharge exam. She is ambulatory and appears younger than stated age. Patient being discharged home with her . They both verbalized understanding of discharge plan of care including safety measures while on blood thinners, diet, activity, medications and follow-up. - Differential Diagnosis Rule out intracranial bleed - Core Measures Measure Exclusions: not indicated - NEXUS Criteria Focal neurological deficit present: No Midline spinal tenderness present: No Altered level of consciousness: No Intoxication present: No Distracting injury present: No NEXUS results: C-Spine can be cleared clinically by these results. Imaging is not required. Critical care attestation.: If time is entered above; I have spent that time in minutes in the direct care of this critically ill patient, excluding procedure time. ED Disposition Clinical Impression: Head contusion Qualifiers: Encounter type: initial encounter Contusion of head detail: unspecified part of head Qualified Code(s): S00.93XA - Contusion of unspecified part of head, initi al encounter Fall Qualifiers: Encounter type: initial encounter Qualified Code(s): W19.XXXA - Unspecified fall, initial encounter Disposition: HOME / SELF CARE / HOMELESS Is pt being admited?: No Does the pt Need Aspirin: No Condition: Stable Additional Instructions: ice to your head tylenol for pain continue home meds use xanax sparingly follow up with pcp in 48 hours for recheck Referrals: TIANNA NGO MD [Staff Physician] - 3-5 Days Time of Disposition: 15:00
== END 2021-12-20 15:32 | disposition home or self-care (01) ==
LOC: ED 13:12
DX: S00.83XA Contusion of other part of head, initial encounter (principal); X58.XXXA Exposure to other specified factors, initial encounter; Y93.89 Activity, other specified; Y92.89 Other specified places as the place of occurrence of the external cause; Y99.8 Other external cause status; Z88.2 Allergy status to sulfonamides; Z88.5 Allergy status to narcotic agent; Z90.49 Acquired absence of other specified parts of digestive tract
CPT/HCPCS: 70450; 99283

== ENCOUNTER 2022-05-30 11:17 | Observation (INO) | payer MEDICARE ==
--- NOTE | 2022-05-30 12:01 | Consultation ---
Medications and Allergies Allergies Allergy/AdvReac Type Severity Reaction Status Date / Time codeine Allergy Severe Hallucinati Verified 05/30/22 11:40 on Sulfa (Sulfonamide Allergy Severe Tongue Verified 05/30/22 11:40 Antibiotics) swelling, rash Home Medications Medication Instructions Recorded Confirmed Last Taken Type ALPRAZolam [Xanax TAB] 0.5 mg PO DAILY 05/10/15 01/04/18 01/04/18 History 0.5mg Aspirin [Aspirin BABY CHEW TAB] 81 mg PO DAILY #30 tab.chew 11/22/17 01/04/18 01/04/18 Rx 81 mg AtorvaSTATin [Lipitor] 20 mg PO QHS #30 tablet 11/22/17 01/04/18 01/03/18 Rx 20 mg lisinopriL [Zestril TAB] 5 mg PO QDAY #30 tablet 11/22/17 01/04/18 01/04/18 Rx 5 mg carvediloL [Coreg] 12.5 mg PO BID 01/04/18 01/04/18 01/04/18 History 12.5mg Assessment and Plan [place] Consult Note # Demographics Consult Type: Acute Stroke Level 1 (0-4.5 hrs) Patient Location: Emergency Room First Name: Tana Last Name: Edmund Age: 81 Gender: Female Facility: [facility] Time of Initial Page ( Time): 05/30/2022, 11:40 Time of Return Call ( Time): 05/30/2022, 11:41 # HPI Handedness: Right History: 81F says she went to get nails done, then sat down in chair and became dizzy and weak. She feels she was dehydrated. She reports taking xarelto for a fib. # Scores Time of exam and NIHSS ( Time): 05/30/2022, 11:45 Level of Consciousness 1a: [0] = Alert; keenly responsive LOC Questions 1b: [0] = Answers both questions correctly LOC Commands 1c: [0] = Performs both tasks correctly Best Gaze 2: [0] = Normal Visual 3: [0] = No visual loss Facial Palsy 4: [0] = Normal symmetrical movements Motor Arm Left 5a: [0] = No drift Motor Arm Right 5b: [0] = No drift Motor Leg Left 6a: [0] = No drift Motor Leg Right 6b: [0] = No drift Limb Ataxia 7: [0] = Absent Sensory 8: [0] = Normal Best Language 9: [0] = No aphasia Dysarthria 10: [1] = [id number]-[id number] dysarthria Extinction and Inattention 11: [0] = No abnormality NIHSS Total: 1 VAN Screening: Negative # PMH-FH-SH Past Medical History: A-fib Medications: NOAC xarelto. # Data Time Head CT personally read by me (Eastern Time): 05/30/2022, 11:[address]: no bleed preliminarily reviewed by me, please refer to radiology read for official reading Left cerebellar chronic stroke. # Assessment Impression: Other syncope without focal deficit at time of my examination and patient reports compliance with xarelto. # Plan Thrombolytic/Intervention: NOT IV Thrombolysis or IA Intervention candidate Thrombolytic Exclusion (< 3 hour window): actively on NOAC Intraarterial Exclusion: non-disabling Target Blood Pressure: SBP < 220 Imaging: (urgency: routine): MRI Brain without contrast Medication: anticoagulation with NOAC Other: If patient has any neurological deterioration please call me back immediately telemetry monitoring would not pursue stroke work-up if MRI is negative I have discussed my recommendations with the referring provider Disposition: observation # Logistics Telemedicine: Interactive 2 way audio and visual telecommunication technology was utilized during this visit # Demographics First Name: Tana Last Name: Edmund Facility: [facility]
--- NOTE | 2022-05-30 12:26 | Cat Scan Report ---
CT head/brain wo con INDICATION: Stroke symptoms. TECHNIQUE: CT head. All CT scans at this location are performed using CT dose reduction for ALARA by means of automated exposure control. COMPARISON: 12/20/2021. FINDINGS: Intracranial: Encephalomalacia in the cerebellum, unchanged. Phan-white matter differentiation is dora ntained. No intracranial hemorrhage. No extra axial collection. No hydrocephalus. No herniation. Sinuses: Paranasal sinuses and mastoid air cells are essentially clear. Orbits: Globes are intact. Calvarium: No acute fracture. IMPRESSION: 1. No acute intracranial abnormality. Signer Name: James Cantu MD Signed: 05/30/2022 12:22 PM Workstation Name: [id number]
--- NOTE | 2022-05-30 12:42 | XRay Report ---
CHEST 1 VIEW 05/30/2022 12:21 PM INDICATION / CLINICAL INFORMATION: r/o cva. COMPARISON: None available. FINDINGS: SUPPORT DEVICES: None. HEART / MEDIASTINUM: No significant abnormality. LUNGS / PLEURA: No significant pulmonary or pleural abnormality. No pneumothorax. ADDITIONAL FINDINGS: No significant additional findings. IMPRESSION: 1. No acute findings. Signer Name: Maximiliano Riley Jr, MD Signed: 05/30/2022 12:38 PM Workstation Name: [id number]
[2022-05-30] MEDS ORDERED: ACETAMINOPHEN 325 MG TAB PO PRN (12:53)
[2022-05-30] MEDS ORDERED: HYDROmorphone 0.5 MG/0.5 ML INJ IV PRN (12:53)
[2022-05-30] MEDS ORDERED: MAGNESIUM HYDROXIDE (MOM) ORAL LIQD UDC PO PRN (12:53)
[2022-05-30] MEDS ORDERED: ONDANSETRON 4 MG/2 ML INJ IV PRN (12:53)
[2022-05-30] MEDS ORDERED: METOCLOPRAMIDE 10 MG TAB PO PRN (12:53)
[2022-05-30] MEDS ORDERED: oxyCODONE /ACETAMINOPHEN 5-325MG TAB PO PRN (12:53)
[2022-05-30 12:54] LABS: Basophils % (Auto) 0.7 % (0.0-1.8); Eosinophils # (Auto) 0.1 K/mm3 (0.0-0.4); Eosinophils % (Auto) 1.1 % (0.0-4.3); Hematocrit 42.8 % (30.3-42.9); Hemoglobin 14.3 gm/dl (10.1-14.3); Lymphocytes # (Auto) 1.2 K/mm3 (1.2-5.4); Lymphocytes % (Auto) 16.4 % (13.4-35.0); Mean Corpuscular HGB Conc 34 % (30-34); Mean Corpuscular Volume 95 fl (79-97); Monocytes # (Auto) 0.5 K/mm3 (0.0-0.8); Monocytes % (Auto) 6.4 % (0.0-7.3); Platelet Count 208 K/mm3 (140-440); Red Blood Count 4.53 M/mm3 (3.65-5.03); Red Cell Distribution Width 14.5 % (13.2-15.2)
--- NOTE | 2022-05-30 12:59 | History and Physical Report ---
History of Present Illness Chief complaint: Confused with slurred speech History of present illness: 81 YO Female with Atrial Fib on therapeutic anticoagulation with Xarelto, Vascular Dementia, Cerebral Atherosclerosis, HTN, HLD, CVA on antiplatelet therapy presents to ED for evaluation. Patient reports "I feel dizzy and weak". Patient has diminished cognition and provides minimal history. Additional history provided by patient was at bedside during exam interview. Patient however reports that he received a call from the salon where his was getting a manicure and was informed that she was confused with slurred speech. Patient transported to [facility] via private vehicle for further care and evaluation of the aforementioned symptoms. The patient was seen and evaluated in the emergency department. All lab and imaging studies reviewed. Patient was found to have a new focal neurologic deficit. A code stroke was called. Patient found to have clinical symptoms consistent with CVA. Teleneurology consulted. Patient admitted to telemetry and initiated on CVA protocol. No reports of fever, chills, chest pain, palpitation, productive cough, unilateral leg swelling, calf pain, prolonged travel/immobility, individual/family history of DVT/PE/bleeding/blood clotting disorders, known exposure to COVID-19. Prior admission on 10/18/2019 reviewed. All medication listed at time of admission has been reconciled. Advanced care planning conducted in E. Past History Past Medical History: hypertension, hyperlipidemia, stroke, other (See HPI) Past Surgical History: appendectomy, cholecystectomy, hysterectomy, tonsillectomy Social history: , lives with family Family history: diabetes, hypertension Medications and Allergies Allergies Allergy/AdvReac Type Severity Reaction Status Date / Time Sulfa (Sulfonamide Allergy Severe Tongue Verified 05/30/22 11:40 Antibiotics) swelling, rash codeine AdvReac Severe Hallucinati Verified 05/30/22 13:02 on Home Medications Medication Instructions Recorded Confirmed Last Taken Type ALPRAZolam [Xanax TAB] 0.5 mg PO DAILY 05/10/15 01/04/18 01/04/18 History 0.5mg Aspirin [Aspirin BABY CHEW TAB] 81 mg PO DAILY #30 tab.chew 11/22/17 01/04/18 01/04/18 Rx 81 mg AtorvaSTATin [Lipitor] 20 mg PO QHS #30 tablet 11/22/17 01/04/18 01/03/18 Rx 20 mg lisinopriL [Zestril TAB] 5 mg PO QDAY #30 tablet 11/22/17 01/04/18 01/04/18 Rx 5 mg carvediloL [Coreg] 12.5 mg PO BID 01/04/18 01/04/18 01/04/18 History 12.5mg Active Meds: Active Medications Acetaminophen (Acetaminophen 325 Mg Tab) 650 mg PO Q4H PRN PRN Reason: Pain, Mild (1-3) Atorvastatin Calcium (Atorvastatin 40 Mg Tab) 40 mg PO QHS KULDIP Bisacodyl (Bisacodyl 10 Mg Rect Supp) [address] QDAY PRN PRN Reason: Constipation Hydromorphone HCl (Hydromorphone 0.5 Mg/0.5 Ml Inj) 0.5 mg IV Q23H PRN PRN Reason: Pain , Severe (7-10) Magnesium Hydroxide (Magnesium Hydroxide (Mom) Oral Liqd Udc) 30 ml PO Q4H PRN PRN Reason: Constipation Metoclopramide HCl (Metoclopramide 10 Mg Tab) 10 mg PO Q6H PRN PRN Reason: Nausea And Vomiting Ondansetron HCl (Ondansetron 4 Mg/2 Ml Inj) 4 mg IV Q8H PRN PRN Reason: Nausea And Vomiting Oxycodone/Acetaminophen (Oxycodone /Acetaminophen 5-325mg Tab) 1 tab PO Q16H PRN PRN Reason: Pain, Moderate (4-6) Promethazine HCl (Promethazine 25 Mg Rect Supp) [address] Q6H PRN PRN Reason: Nausea And Vomiting Sodium Chloride (Sodium Chloride 0.9% 10 Ml Flush Syringe) 10 ml INJ PRN PRN PRN Reason: LINE FLUSH Review of Systems ROS unobtainable: due to mental status Exam - Constitutional Vitals: Temp Pulse Resp BP Pulse Ox 59 L 9 L 123/68 99 05/30/22 12:30 05/30/22 12:30 05/30/22 12:30 05/30/22 12:30 General appearance: Present: mild distress - EENT Eyes: Present: PERRL ENT: hearing intact, clear oral mucosa, hearing decreased - Neck Neck: Present: supple, normal ROM - Respiratory Respiratory effort: normal Respiratory: bilateral: CTA - Cardiovascular Rhythm: irregularly irregular - Extremities Extremities: pulses symmetrical, No edema Peripheral Pulses: within normal limits - Abdominal General gastrointestinal: Present: soft, non-tender, non-distended, normal bowel sounds Female genitourinary: Present: normal - Integumentary Integumentary: Present: clear, warm, dry - Musculoskeletal Musculoskeletal: generalized weakness - Psychiatric Psychiatric: no appropriate mood/affect, no intact judgment & insight, no memory intact - Neurologic Neurologic: CNII-XII intact, no focal deficits, moves all extremities, no gait normal Results - Labs CBC & Chem 7: 05/30/22 12:24 05/30/22 12:24 Labs: Abnormal lab results 05/30/22 Range/Units 12:24 Seg Neutrophils % 75.4 H (40.0-70.0) % Assessment and Plan - Patient Problems (1) CVA (cerebral vascular accident) Status: Acute Plan to address problem: CVA protocol: CT head, telemetry neurology consulted, physical therapy consulted, Occupational Therapy consulted, speech therapy consulted, antiplatelet therapy, continue therapeutic anticoagulation, carotid Doppler, echocardiogram, lipid panel, statin therapy (2) Hypertension Status: Acute Qualifiers: Hypertension type: primary hypertension Qualified Code(s): I10 - Essential (primary) hypertension Plan to address problem: Monitor blood pressure every shift, permissive hypertension overnight. (3) Hyperlipidemia Status: Acute Qualifiers: Hyperlipidemia type: mixed hyperlipidemia Qualified Code(s): E78.2 - Mixed hyperlipidemia Plan to address problem: Statin therapy, supportive care. (4) Atrial fibrillation Status: Acute Qualifiers: Atrial fibrillation type: longstanding persistent Qualified Code(s): I48.11 - Longstanding persistent atrial fibrillation Plan to address problem: Continue therapeutic anticoagulation, rate currently controlled. (5) DVT prophylaxis Status: Acute Plan to address problem: SCD to bilateral lower extremities while in bed (6) Advance care planning Status: Acute Plan to address problem: Disease education data, care plan discussed, diagnoses discussed, prognosis discussed, patient is full code. Patient and family acknowledged understanding and agreement with care plan, +30 minutes. (7) Preventative health care Status: Acute Plan to address problem: Patient and family counseled regarding home safety precautions, fall precautions, risk factor reduction, outpatient follow-up with primary care physician for all age and risk factor appropriate screening test. +30 minutes.
[2022-05-30] MEDS ORDERED: PROMETHAZINE 25 MG RECT SUPP PR PRN (13:07)
[2022-05-30 13:21] LABS: Alanine Aminotransferase 9 units/L (7-56); Albumin 3.9 g/dL (3.9-5); BUN/Creatinine Ratio 19; Blood Urea Nitrogen 23 mg/dL (7-17); Calcium 9.1 mg/dL (8.4-10.2); Hemolysis Index 10
[2022-05-30 13:33] LABS: Creatine Kinase MB < 1.0 ng/mL (0.0-4.0)
--- NOTE | 2022-05-30 13:48 | Emergency Department Report ---
ED Neuro Deficit HPI - General Chief Complaint: Neuro Symptoms/Deficit Stated Complaint: DIZZY SPELLS Time Seen by Provider: 05/30/22 11:48 Source: patient Mode of arrival: Ambulatory Limitations: No Limitations - History of Present Illness Initial Comments: 1F says she went to get nails done, then sat down in chair and became dizzy and weak. She feels she was dehydrated. She reports taking xarelto for a fib. pt has history of 3 strokes in the past . no fall , symtpoms abck to almost basline , pt is brought in by her when [facility] called him to tell him that his was not acting right , when they put her on the phone she was very slured that he couldn;t undertand her -: Sudden, hour(s) Location: speech Presenting Symptoms: Present: Unable to Speak Clearly History of same: Yes Place: other ([place]) Severity: mild Quality: improving Improves With: none Worsens With: none On Anticoagulants: Yes Context: sudden onset Associated Symptoms: denies: denies other symptoms, confusion, chest pain, cough, diaphoresis, headaches, loss of appetite, malise, nausea/vomiting - Related Data Home Medications: Home Medications Medication Instructions Recorded Confirmed Last Taken ALPRAZolam [Xanax TAB] 0.5 mg PO DAILY 05/10/15 01/04/18 01/04/18 0.5mg carvediloL [Coreg] 12.5 mg PO BID 01/04/18 01/04/18 01/04/18 12.5mg Previous Rx's Medication Instructions Recorded Last Taken Type Aspirin [Aspirin BABY CHEW TAB] 81 mg PO DAILY #30 tab.chew 11/22/17 01/04/18 Rx 81 mg AtorvaSTATin [Lipitor] 20 mg PO QHS #30 tablet 11/22/17 01/03/18 Rx 20 mg lisinopriL [Zestril TAB] 5 mg PO QDAY #30 tablet 11/22/17 01/04/18 Rx 5 mg Allergies/Adverse Reactions: Allergies Allergy/AdvReac Type Severity Reaction Status Date / Time Sulfa (Sulfonamide Allergy Severe Tongue Verified 05/30/22 11:40 Antibiotics) swelling, rash codeine AdvReac Severe Hallucinati Verified 05/30/22 13:02 on ED Review of Systems ROS: Stated complaint: DIZZY SPELLS Other details as noted in HPI Constitutional: denies: chills, fever Eyes: denies: eye pain, eye discharge, vision change ENT: denies: ear pain, throat pain Respiratory: denies: cough, shortness of breath, wheezing Cardiovascular: denies: chest pain, palpitations Endocrine: no symptoms reported Gastrointestinal: denies: abdominal pain, nausea, diarrhea Genitourinary: denies: urgency, dysuria, discharge Musculoskeletal: denies: back pain, joint swelling, arthralgia Skin: denies: rash, lesions Neurological: denies: headache, weakness, paresthesias Psychiatric: denies: anxiety, depression Hematological/Lymphatic: denies: easy bleeding, easy bruising ED Past Medical Hx - Past Medical History Previous Medical History?: Yes Hx Hypertension: Yes (1998) Hx CVA: Yes Hx Heart Attack/AMI: No Hx Congestive Heart Failure: No Hx Diabetes: No Hx Arthritis: Yes - Surgical History Hx Cholecystectomy: Yes Hx Appendectomy: Yes Additional Surgical History: TONSILLECTOMY. HYSTERECTOMY - Social History Smoking Status: Never Smoker Substance Use Type: None - Medications Home Medications: Home Medications Medication Instructions Recorded Confirmed Last Taken Type ALPRAZolam [Xanax TAB] 0.5 mg PO DAILY 05/10/15 01/04/18 01/04/18 History 0.5mg Aspirin [Aspirin BABY CHEW TAB] 81 mg PO DAILY #30 tab.chew 11/22/17 01/04/18 01/04/18 Rx 81 mg AtorvaSTATin [Lipitor] 20 mg PO QHS #30 tablet 11/22/17 01/04/18 01/03/18 Rx 20 mg lisinopriL [Zestril TAB] 5 mg PO QDAY #30 tablet 11/22/17 01/04/18 01/04/18 Rx 5 mg carvediloL [Coreg] 12.5 mg PO BID 01/04/18 01/04/18 01/04/18 History 12.5mg ED Neuro Physical Exam - General Limitations: No Limitations General appearance: alert, in no apparent distress Suspected Stroke: Yes - Head Head exam: Present: atraumatic, normocephalic - Eye Eye exam: Present: normal appearance - ENT ENT exam: Present: mucous membranes moist - Neck Neck exam: Present: normal inspection - Respiratory Respiratory exam: Present: normal lung sounds bilaterally. Absent: respiratory distress - Cardiovascular Cardiovascular Exam: Present: regular rate, normal rhythm. Absent: systolic murmur, diastolic murmur, rubs, gallop - GI/Abdominal GI/Abdominal exam: Present: soft, normal bowel sounds - Extremities Exam Extremities exam: Present: normal inspection - Back Exam Back exam: Present: normal inspection - Neurological Exam Neurological exam: Present: alert, oriented X3 - NIHSS Assessment Interval: Baseline 1a. Level of Consciousness: alert/keenly responsive 1b. LOC Questions: answers both correctly 1c. LOC Commands: performs tasks correctly 2. Best Gaze: normal 3. Visual: no visual loss 4. Facial Palsy: normal symmetrical movement 5b. Motor Arm Right: no drift 5a. Motor Arm Left: no drift 6a. Motor Leg Left: no drift 6b. Motor Leg Right: no drift 7. Limb Ataxia: absent 8. Sensory: normal 9. Best Language: mild/moderate aphasia 10. Dysarthria: normal 11. Extinction/Inattention: no abnormality Total Score: 1 Stroke Severity: Minor Stroke - Psychiatric Psychiatric exam: Present: normal affect, normal mood - Skin Skin exam: Present: warm, dry, intact, normal color. Absent: rash ED Course Vital Signs 05/30/22 05/30/22 12:06 12:30 Pulse Rate 59 L Respiratory 13 9 L Rate Blood Pressure 123/68 O2 Sat by Pulse 100 99 Oximetry - Lab Data Result diagrams: 05/30/22 12:24 05/30/22 12:24 Lab Results 05/30/22 05/30/22 Range/Units 12:24 12:24 WBC 7.3 (4.5-11.0) K/mm3 RBC 4.53 (3.65-5.03) M/mm3 Hgb 14.3 (10.1-14.3) gm/dl Hct 42.8 (30.3-42.9) % MCV 95 (79-97) fl MCH 32 (28-32) pg MCHC 34 (30-34) % RDW 14.5 (13.2-15.2) % Plt Count 208 (140-440) K/mm3 Lymph % (Auto) 16.4 (13.4-35.0) % Coke % (Auto) 6.4 (0.0-7.3) % Eos % (Auto) 1.1 (0.0-4.3) % Baso % (Auto) 0.7 (0.0-1.8) % Lymph # (Auto) 1.2 (1.2-5.4) K/mm3 Coke # (Auto) 0.5 (0.0-0.8) K/mm3 Eos # (Auto) 0.1 (0.0-0.4) K/mm3 Baso # (Auto) 0.0 (0.0-0.1) K/mm3 Seg Neutrophils % 75.4 H (40.0-70.0) % Seg Neutrophils # 5.5 (1.8-7.7) K/mm3 Sodium 141 (137-145) mmol/L Potassium 4.2 (3.6-5.0) mmol/L Chloride 107.5 H (98-107) mmol/L Carbon Dioxide 19 L (22-30) mmol/L Anion Gap 19 mmol/L BUN 23 H (7-17) mg/dL Creatinine 1.2 (0.6-1.2) mg/dL Estimated GFR 43 ml/min BUN/Creatinine Ratio 19 % Glucose 102 H (65-100) mg/dL Calcium 9.1 (8.4-10.2) mg/dL Total Bilirubin 0.50 (0.1-1.2) mg/dL AST 12 (5-40) units/L ALT 9 (7-56) units/L Alkaline Phosphatase 78 (35-129) units/L Total Creatine Kinase 36 (30-135) units/L CK-MB (CK-2) < 1.0 (0.0-4.0) ng/mL CK-MB (CK-2) Rel Index 2.7 (0-4) Troponin T < 0.010 (0.00-0.029) ng/mL Total Protein 6.1 L (6.3-8.2) g/dL Albumin 3.9 (3.9-5) g/dL Albumin/Globulin Ratio 1.8 % - EKG Data -: EKG Interpreted by Me - Radiology Data Radiology results: report reviewed, image reviewed - Medical Decision Making stroke alert , head ct negative , spoke with neuro , not TPA canddiate , on xarelto n and symptoms almost resolved - Core Measures AMI Core Measures Followed: Yes Critical care attestation.: If time is entered above; I have spent that time in minutes in the direct care of this critically ill patient, excluding procedure time. ED Disposition Clinical Impression: CVA (cerebral vascular accident), Slurred speech, TIA (transient ischemic attack) Disposition: 09 ADMITTED INPATIENT Is pt being admited?: Yes Does the pt Need Aspirin: No Condition: Stable
[2022-05-30 14:16] LABS: INR 2.86 (0.87-1.13); Thrombin Time 18.2 Sec. (15.1-19.6)
[2022-05-30 14:17] LABS: Partial Thromboplastin Time 42.4 Sec. (24.2-36.6)
--- NOTE | 2022-05-30 16:15 | Vascular Lab Report ---
DUPLEX DOPPLER ULTRASOUND CAROTID, BILATERAL INDICATION / CLINICAL INFORMATION: stroke. COMPARISON: CTA neck 11/20/2017. FINDINGS: RIGHT CAROTID: Mild atherosclerotic plaque. - PLAQUE ESTIMATE (%): < 50% - CCA velocity: 49 cm/sec. - ICA peak systolic velocity: 67 cm/sec. - ICA/CCA PSV Ratio: Less than 2. Right Vertebral Artery: Antegrade flow. LEFT CAROTID: Mild atherosclerotic plaque. - PLAQUE ESTIMATE (%): < 50% - CCA velocity: 43 cm/sec. - ICA peak systolic velocity: 66 cm/sec. - ICA/CCA PSV Ratio: Less than 2. Left Vertebral Artery: Antegrade flow. IMPRESSION: 1. Right Internal Carotid Artery: Less than 50% diameter stenosis. 2. Left Internal Carotid Artery: Less than 50% diameter stenosis. Velocity criteria are extrapolated from diameter data as defined by the Society of Radiologists in Ul trasound Consensus Conference, Radiology 2003; 229;340-346. NO STENOSIS (NORMAL) - Plaque = none; ICA PSV < 125 cm/sec; ICA/CCA PSV Ratio < 2.0 <50% STENOSIS - Plaque < 50%; ICA PSV < 125 cm/sec; ICA/CCA PSV Ratio < 2.0 50-69% STENOSIS - Plaque > 50%; ICA PSV = 125-230 cm/sec; ICA/CCA PSV Ratio = 2.0-4.0 >70% BUT <100% STENOSIS - Plaque > 50%; ICA PSV > 230 cm/sec; ICA/CCA PSV Ratio > 4.0 NEAR OCCLUSION - Plaque = visible lumen; ICA PSV = high/low/none; ICA/CCA PSV Ratio = variable TOTAL OCCLUSION - Plaque = no lumen; ICA PSV = none; ICA/CCA PSV Ratio = N/A Scribed by: Katrina Luque RDMS, RVT, RMSKS Scribed: 05/30/2022 2:26 PM I have reviewed the images, agree with this report, and edited this report as needed. Signer Name: James Cantu MD Signed: 05/30/2022 4:10 PM Workstation Name: [id number]
[2022-05-30] MEDS: carvediloL 12.5 MG TAB PO SCH (22:28)
--- NOTE | 2022-05-31 08:45 | Progress Note ---
Assessment and Plan Assessment and plan: Assessment and Plan - Patient Problems (1) CVA (cerebral vascular accident) Status: Acute Plan to address problem: CVA protocol: CT head, telemetry neurology consulted, physical therapy consulted, Occupational Therapy consulted, speech therapy consulted, antiplatelet therapy, continue therapeutic anticoagulation, carotid Doppler, echocardiogram, lipid panel, statin therapy (2) Hypertension Status: Acute Qualifiers: Hypertension type: primary hypertension Qualified Code(s): I10 - Essential (primary) hypertension Plan to address problem: Monitor blood pressure every shift, permissive hypertension overnight. (3) Hyperlipidemia Status: Acute Qualifiers: Hyperlipidemia type: mixed hyperlipidemia Qualified Code(s): E78.2 - Mixed hyperlipidemia Plan to address problem: Statin therapy, supportive care. (4) Atrial fibrillation Status: Acute Qualifiers: Atrial fibrillation type: longstanding persistent Qualified Code(s): I48.11 - Longstanding persistent atrial fibrillation Plan to address problem: Continue therapeutic anticoagulation, rate currently controlled. (5) DVT prophylaxis Status: Acute Plan to address problem: SCD to bilateral lower extremities while in bed (6) Advance care planning Status: Acute Plan to address problem: Disease education data, care plan discussed, diagnoses discussed, prognosis discussed, patient is full code. Patient and family acknowledged understanding and agreement with care plan, +30 minutes. (7) Preventative health care Status: Acute Plan to address problem: Patient and family counseled regarding home safety precautions, fall precautions, risk factor reduction, outpatient follow-up with primary care physician for all age and risk factor appropriate screening test. +30 minutes. History Interval history: 81 YO Female with Atrial Fib on therapeutic anticoagulation with Xarelto, Vascular Dementia, Cerebral Atherosclerosis, HTN, HLD, CVA on antiplatelet therapy presents to ED for evaluation. Patient CC was dizziness and weakness". Patient has diminished cognition and provides minimal history. Additional history provided by patient was at bedside during exam interview. Patient however reports that he received a call from the salon where his was getting a manicure and was informed that she was confused with slurred speech. Patient was found to have a new focal neurologic deficit. Patient found to have clinical symptoms consistent with CVA. At present Hospitalist Physical - Constitutional Vitals: Temp Pulse Resp BP Pulse Ox 97.0 F L 74 18 143/73 97 05/31/22 07:23 05/31/22 07:23 05/31/22 07:23 05/31/22 07:23 05/31/22 08:35 General appearance: Present: mild distress HEART Score - HEART Score Troponin: Troponin T < 0.010 ng/mL (0.00-0.029) 05/30/22 12:24 Results - Labs CBC & Chem 7: 05/30/22 12:24 05/30/22 12:24 Labs: Laboratory Last Values WBC 7.3 K/mm3 (4.5-11.0) 05/30/22 12:24 RBC 4.53 M/mm3 (3.65-5.03) 05/30/22 12:24 Hgb 14.3 gm/dl (10.1-14.3) 05/30/22 12:24 Hct 42.8 % (30.3-42.9) 05/30/22 12:24 MCV 95 fl (79-97) 05/30/22 12:24 MCH 32 pg (28-32) 05/30/22 12:24 MCHC 34 % (30-34) 05/30/22 12:24 RDW 14.5 % (13.2-15.2) 05/30/22 12:24 Plt Count 208 K/mm3 (140-440) 05/30/22 12:24 Lymph % (Auto) 16.4 % (13.4-35.0) 05/30/22 12: Duval % (Auto) 6.4 % (0.0-7.3) 05/30/22 12:24 Eos % (Auto) 1.1 % (0.0-4.3) 05/30/22 12: Baso % (Auto) 0.7 % (0.0-1.8) 05/30/22 12:24 Lymph # (Auto) 1.2 K/mm3 (1.2-5.4) 05/30/22 12:24 Duval # (Auto) 0.5 K/mm3 (0.0-0.8) 05/30/22 12: Eos # (Auto) 0.1 K/mm3 (0.0-0.4) 05/30/22 12:24 Baso # (Auto) 0.0 K/mm3 (0.0-0.1) 05/30/22 12:24 Seg Neutrophils % 75.4 % (40.0-70.0) H 05/30/22 12:24 Seg Neutrophils # 5.5 K/mm3 (1.8-7.7) 05/30/22 12:24 PT 34.5 Sec. (12.2-14.9) H 05/30/22 13:04 INR 2.86 (0.87-1.13) H 05/30/22 13:04 APTT 42.4 Sec. (24.2-36.6) H 05/30/22 13:04 Thrombin Time 18.2 Sec. (15.1-19.6) 05/30/22 13:04 Sodium 141 mmol/L (137-145) 05/30/22 12:24 Potassium 4.2 mmol/L (3.6-5.0) 05/30/22 12:24 Chloride 107.5 mmol/L (98-107) H 05/30/22 12:24 Carbon Dioxide 19 mmol/L (22-30) L 05/30/22 12:24 Anion Gap 19 mmol/L 05/30/22 12:24 BUN 23 mg/dL (7-17) H 05/30/22 12:24 Creatinine 1.2 mg/dL (0.6-1.2) 05/30/22 12:24 Estimated GFR 43 ml/min 05/30/22 12:24 BUN/Creatinine Ratio 19 % 05/30/22 12:24 Glucose 102 mg/dL (65-100) H 05/30/22 12:24 Calcium 9.1 mg/dL (8.4-10.2) 05/30/22 12:24 Total Bilirubin 0.50 mg/dL (0.1-1.2) 05/30/22 12:24 AST 12 units/L (5-40) 05/30/22 12:24 ALT 9 units/L (7-56) 05/30/22 12:24 Alkaline Phosphatase 78 units/L (35-129) 05/30/22 12:24 Total Creatine Kinase 36 units/L (30-135) 05/30/22 12:24 CK-MB (CK-2) < 1.0 ng/mL (0.0-4.0) 05/30/22 12:24 CK-MB (CK-2) Rel Index 2.7 (0-4) 05/30/22 12:24 Troponin T < 0.010 ng/mL (0.00-0.029) 05/30/22 12:24 Total Protein 6.1 g/dL (6.3-8.2) L 05/30/22 12:24 Albumin 3.9 g/dL (3.9-5) 05/30/22 12:24 Albumin/Globulin Ratio 1.8 % 05/30/22 12:24 Bennett/IV: Voiding Method Toilet Active Medications - Current Medications Current Medications: Generic Name Dose Route Start Last Admin Trade Name Freq PRN Reason Stop Dose Admin Acetaminophen 650 mg 05/30/22 12:53 Acetaminophen 325 Mg Tab PO Q4H PRN Pain, Mild (1-3) Alprazolam 0.5 mg 05/31/22 10:00 Alprazolam 0.5 Mg Tab PO DAILY [facility] Aspirin 81 mg 05/31/22 10:00 Aspirin 81 Mg Tab Chew PO DAILY [facility] Atorvastatin Calcium 40 mg 05/30/22 22:00 05/30/22 22:28 Atorvastatin 40 Mg Tab PO 40 mg QHS [facility] Administration Bisacodyl 10 mg 05/30/22 12:53 Bisacodyl 10 Mg Rect Supp NV QDAY PRN Constipation Carvedilol 12.5 mg 05/30/22 22:00 05/30/22 22:28 Carvedilol 12.5 Mg Tab PO 12.5 mg BID KULDIP Administration Hydromorphone HCl 0.5 mg 05/30/22 12:53 Hydromorphone 0.5 Mg/0.5 Ml Inj IV Q23H PRN Pain , Severe (7-10) Lisinopril 5 mg 05/31/22 10:00 Lisinopril 5 Mg Tab PO QDAY [facility] Magnesium Hydroxide 30 ml 05/30/22 12:53 Magnesium Hydroxide (Mom) Oral Liqd Udc PO Q4H PRN Constipation Metoclopramide HCl 10 mg 05/30/22 12:53 Metoclopramide 10 Mg Tab PO Q6H PRN Nausea And Vomiting Ondansetron HCl 4 mg 05/30/22 12:53 Ondansetron 4 Mg/2 Ml Inj IV Q8H PRN Nausea And Vomiting Oxycodone/Acetaminophen 1 tab 05/30/22 12:53 Oxycodone /Acetaminophen 5-325mg Tab PO Q16H PRN Pain, Moderate (4-6) Promethazine HCl 25 mg 05/30/22 13:07 Promethazine 25 Mg Rect Supp NV Q6H PRN Nausea And Vomiting Sodium Chloride 10 ml 05/30/22 12:53 05/30/22 22:28 Sodium Chloride 0.9% 10 Ml Flush Syringe IV 10 ml PRN PRN Administration LINE FLUSH
[2022-05-31] MEDS: carvediloL 12.5 MG TAB PO SCH (09:49)
[2022-05-31] MEDS ORDERED: ALPRAZolam 0.5 MG TAB PO SCH (10:00)
[2022-05-31] MEDS ORDERED: ASPIRIN 81 MG TAB CHEW PO SCH (10:00)
[2022-05-31] MEDS ORDERED: LISINOPRIL 5 MG TAB PO SCH (10:00)
--- NOTE | 2022-05-31 12:12 | Discharge Summary ---
Providers - Providers Date of Admission: 05/30/22 12:56 Date of discharge: 05/31/22 Attending physician: ARNOLD SMALL 05/30/22 12:56 Occupational Therapy Evaluate and Treat [CONS] Routine Comment: Reason For Exam: Neuro deficits Physical Therapy Evaluation and Treat [CONS] Routine Comment: Reason For Exam: Neuro deficits Speech Therapy Evaluation and Treat [CONS] Routine Reason For Exam: swallow eval Primary care physician: [employer] Hospitalization Condition: Good Pertinent studies: Chest x-ray unremarkable Carotid Doppler less than 50% stenosis bilaterally CT scan head also unremarkable. Hospital course: Patient 81-year-old female with history of CVA in the past, #2 hypertension, #3 hyperlipidemia, #4 atrial fibrillation. Patient presented to ED with an acute focal deficit of slurred speech and generalized body weakness. Upon presentation to the ED in today patient symptoms have completely resolved. Patient is getting up walking around. Patient also began to try to up and down the dawson in bed and up and down without any dizziness. Initial work-up was unremarkable. Most likely etiology TIA. Also on the differential short course of uncontrolled A. fib. Patient however is regular now. Rate very well controlled. Actually is in sinus at this particular time. Patient be discharged with follow-up with neurology and primary care physician 5 to 7 days. Disposition: 01 HOME / SELF CARE / HOMELESS Final Discharge Diagnosis (Prints w/discharge instructions): TIA Time spent for discharge: 22min - Discharge Diagnoses (1) TIA (transient ischemic attack) Status: Acute Comment: Patient focal neurologic deficit of slurred speech. Patient quickly returned back to baseline less than 3 hours. Up walking around and trying to the halls. Without any difficulty. at bedside. All questions and concerns answered. Patient has follow-up primary care physician. Antiplatelet antilipid therapy that she was already on. We will continue this. Work-up including brain imaging, carotid ultrasound, electrolytes, chest x-ray EKG unremarkable. (2) Atrial fibrillation Status: Acute Qualifiers: Atrial fibrillation type: longstanding persistent Qualified Code(s): I48.11 - Longstanding persistent atrial fibrillation Comment: Continue AV shakir blocking agent. (3) Hyperlipidemia Status: Acute Qualifiers: Hyperlipidemia type: mixed hyperlipidemia Qualified Code(s): E78.2 - Mixed hyperlipidemia Comment: Continue statin goal would be LDL less than 70. (4) Hypertension Status: Acute Qualifiers: Hypertension type: primary hypertension Qualified Code(s): I10 - Essential (primary) hypertension Comment: Very well controlled with Coreg AV shakir blocking agent. Also controlling rate of atrial fibrillation. Patient currently regular at this time. We will treat with current antiplatelet therapy. (5) Dizziness Status: Acute Comment: Patient has been dizzy since initial CVA. Occasional dizziness will treat as needed meclizine. Core Measure Documentation - Palliative Care Palliative Care/ Comfort Measures: Not Applicable - Core Measures Any of the following diagnoses?: none Exam - Constitutional Vitals: Temp Pulse Resp BP Pulse Ox 97.0 F L 74 18 143/73 98 05/31/22 07:23 05/31/22 07:23 05/31/22 07:23 05/31/22 07:05/31/22 09:36 General appearance: Present: no acute distress, well-nourished - EENT Eyes: Present: PERRL ENT: hearing intact, clear oral mucosa - Neck Neck: Present: supple, normal ROM - Respiratory Respiratory effort: normal Respiratory: bilateral: CTA - Cardiovascular Heart Sounds: Present: S1 & S2. Absent: rub, click - Extremities Extremities: pulses symmetrical, No edema Peripheral Pulses: within normal limits - Abdominal General gastrointestinal: Present: soft, non-tender, non-distended, normal bowel sounds Female genitourinary: Present: normal - Integumentary Integumentary: Present: clear, warm, dry - Musculoskeletal Musculoskeletal: gait normal, strength equal bilaterally - Psychiatric Psychiatric: appropriate mood/affect, intact judgment & insight - Neurologic Neurologic: CNII-XII intact, moves all extremities Plan Diet: low salt Plan of Treatment: Patient follow-up primary care physician 5 to 7 days. Also will treat patient with meclizine as needed until she is able to follow with a primary care physician. Follow up with: PRIMARY CAREMD [Primary Care Provider] - 7 Days
[2022-05-31 12:29] VITALS: BP 127/67
--- NOTE | 2022-06-01 17:33 | Electrocardiograph Report ---
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
== END 2022-05-31 15:21 | disposition home or self-care (01) ==
LOC: ED 11:17 → 4A 12:56 → INTOOBSV 12:56 → 4A 15:10
PROVIDERS: ADMIT Internal Medicine; ATTEND Internal Medicine
DX: G45.9 Transient cerebral ischemic attack, unspecified (principal); I10 Essential (primary) hypertension; I48.11 Longstanding persistent atrial fibrillation; E78.2 Mixed hyperlipidemia; R47.81 Slurred speech; I63.9 Cerebral infarction, unspecified; R42 Dizziness and giddiness; R29.701 NIHSS score 1; Z86.73 Personal history of transient ischemic attack (TIA), and cerebral infarction without residual deficits; Z90.49 Acquired absence of other specified parts of digestive tract; Z90.710 Acquired absence of both cervix and uterus; Z79.82 Long term (current) use of aspirin; Z79.899 Other long term (current) drug therapy; Z98.890 Other specified postprocedural states
CPT/HCPCS: 36415; 70450; 71045; 80053; 82550; 82553; 84484; 85025; 85610; 85670; 85730; 92523; 92610; 93005; 93880; 97161; 97165; 99285; C8929; G0378; 93306